=== PATIENT | male | born 1970 | race Caucasian/White ===

== ENCOUNTER 2019-04-03 19:52 | Inpatient (IN) ==
[2019-04-03] MEDS ORDERED: Isovue-370 500 ML BOTTLE IVP ONE (20:19)
[2019-04-03 20:42] LABS: Basophils # 0.1 K/mcL (0.0-0.2); Basophils % 0.6 %; Eosinophils # 0.5 K/mcL (0.0-0.6); Eosinophils % 3.7 %; Hematocrit 39.9 % (37.5-50.1); Hemoglobin 13.3 g/dL (12.9-16.9); Immature Granulocytes % 1.5 % (0-4); Lymphocytes # 2.1 K/mcL (0.6-4.6); Lymphocytes % 16.4 %; Mean Corpuscular HGB Conc 33.3 g/dL (31.6-35.5); Mean Corpuscular Hemoglobin 28.9 pg (28.0-33.3); Mean Corpuscular Volume 86.7 fL (83.0-100.0); Mean Platelet Volume 11.3 fL (9.4-12.4); Monocytes # 0.8 K/mcL (0.0-1.3); Monocytes % 6.2 %; Neutrophils # 9.1 K/mcL (1.6-8.9); Platelet Count 212 K/mcL (140-400); Red Cell Distribution Width 12.8 % (11.5-14.5); Segmented Neutrophils % 71.6 %
--- NOTE | 2019-04-03 20:52 | Emergency Department Note ---
Disposition Clinical Impression: Pulmonary embolism and infarction Chest pain Qualifiers: Chest pain type: unspecified Qualified Code(s): R07.9 - Chest pain, unspecified Disposition: Admitted As Inpatient Condition: Undetermined Referrals: NONE,PCP [Primary Care Provider] - Forms: ED Satisfaction Letter Time of Disposition: 22:43 Chest Pain HPI - General Chief Complaint: ED Chest Pain Stated Complaint: Chest Tightness Time Seen by Provider: 04/03/19 20:10 Source: patient, family Mode of arrival: ambulatory Limitations: no limitations Vital Signs Reviewed: Yes Nursing Notes Reviewed: Yes - History of Present Illness HPI Narrative: 48-year-old male with history of hypertension, recent knee surgery and recent diagnosis of pulmonary emboli and DVT arrives to the emergency department with severe chest pressure. Patient was diagnosed roughly 10 days ago and started on Xarelto. The patient is on the twice a day dosing at this time and is taking it appropriately. He denies any other complaints at this time including shortness of breath. He is describing severe chest pressure that started roughly 2 hours prior to arrival. Patient denies any other complaints at this time. He is resting comfortably in the room and in no acute distress. Patient is noted to be tachycardic on evaluation. Severity scale (1-10): 8 - Related Data Home Medications Medication Instructions Recorded Confirmed Ibuprofen [Motrin] 800 mg PO TID PRN 03/20/19 03/20/19 Amlodipine Besylate 10 mg PO DAILY 04/03/19 04/03/19 Metaxalone 800 mg PO TID PRN 04/03/19 04/03/19 Rivaroxaban [Xarelto] 15 mg PO BID 04/03/19 04/03/19 Allergies Allergy/AdvReac Type Severity Reaction Status Date / Time No Known Allergies Allergy Verified 03/19/19 22:41 All systems ED: reviewed and negative except as stated. Constitutional: Denies: fever, chills, weakness ENT ED: Denies: dysphagia Cardiovascular: Reports: chest pain. Denies: palpitations Respiratory: Denies: dyspnea Gastrointestinal: Denies: abdominal pain Genitourinary: Denies: urgency, dysuria Musculoskeletal: Denies: back pain Integumentary: Denies: rash Neurological: Denies: headache Chest Pain PMH - Past Medical History Medical history: Reports: DVT, hypertension, pulmonary embolus Surgical history: Reports: no surgical history Psychiatric history: Reports: no psych history - Social History Smoking Status: Never smoker Alcohol use: Reports: none Drug use: Reports: none Physical Exam - General Limitations: no limitations General appearance: alert, in no apparent distress - Head Head exam: atraumatic, normocephalic, normal inspection - Eye Eye exam: Present: normal appearance, PERRL, EOMI - ENT ENT exam: normal exam, normal oropharynx, mucous membranes moist - Neck Neck exam: Present: normal inspection, full ROM, trachea midline - Chest Chest inspection: Present: normal inspection, symmetric chest wall rise - Respiratory Respiratory exam: Present: normal lung sounds bilaterally - Cardiovascular Cardiovascular exam: Present: normal rhythm, tachycardia - Abdominal Exam Abdominal exam: Present: soft, Non-Tender. Absent: tenderness, distention, guarding, rebound, rigidity - Extremities Exam Extremities exam: Present: full ROM, normal capillary refill, other (post-op to right knee). Absent: tenderness Course Vital Signs Temperature 98.2 F 04/03/19 20:12 Pulse Rate 118 04/03/19 20:12 Respiratory Rate 20 04/03/19 20:12 Blood Pressure 158/79 04/03/19 20:12 O2 Sat by Pulse Oximetry 98 04/03/19 20:12 Temperature 98.2 F 04/03/19 20:12 Pulse Rate 96 04/03/19 21:10 Respiratory Rate 20 04/03/19 21:10 Blood Pressure 144/94 04/03/19 21:10 O2 Sat by Pulse Oximetry 96 04/03/19 21:10 Oxygen Delivery Oxygen Delivery Room Air Chest Pain - MDM Narrative Medical decision making narrative: Patient's CTA demonstrates bilateral pulmonary emboli. The patient does have areas of pulmonary infarction as well. He is currently on Xarelto and we are unable and nor is call was radiology able to see previous images performed and as soon see. Given the patient's infarction I am concerned about the patient and I believe the patient needs to be admitted to the hospital as he is now symptomatic with this infarction noted on CTA of the chest. The patient will be started on a heparin drip and admitted to the hospital. Patient made aware and agrees to plan. No further questions or concerns noted. Accepted by Dr. Dale - Lab Data Lab results reviewed: Yes I reviewed the patient's lab results. Result diagrams: 04/03/19 20:27 04/03/19 20:27 Lab Results 04/03/19 04/03/19 Range/Units 20:27 20:27 WBC 12.7 H (4.3-11.1) K/mcL RBC 4.60 (4.19-5.50) M/mcL Hgb 13.3 (12.9-16.9) g/dL Hct 39.9 (37.5-50.1) % MCV 86.7 (83.0-100.0) fL MCH 28.9 (28.0-33.3) pg MCHC 33.3 (31.6-35.5) g/dL RDW 12.8 (11.5-14.5) % Plt Count 212 (140-400) K/mcL MPV 11.3 (9.4-12.4) fL Immature Gran % 1.5 (0-4) % Seg Neutrophils % 71.6 % Lymphocytes % 16.4 % Monocytes % 6.2 % Eosinophils % 3.7 % Basophils % 0.6 % Neutrophils # 9.1 H (1.6-8.9) K/mcL Lymphocytes # 2.1 (0.6-4.6) K/mcL Monocytes # 0.8 (0.0-1.3) K/mcL Eosinophils # 0.5 (0.0-0.6) K/mcL Basophils # 0.1 (0.0-0.2) K/mcL Sodium 136 (136-145) mEq/L Potassium 3.6 (3.5-5.1) mEq/L Chloride 101 (98-107) mEq/L Carbon Dioxide 22 L (23-29) mEq/L BUN 20 (6-20) mg/dL Creatinine 0.89 (0.70-1.30) mg/dL Est GFR ( Amer) > 60 (> 60) Est GFR (Non-Af Amer) > 60 (> 60) BUN/Creatinine Ratio 22 (6-26) Glucose 157 H (70-105) mg/dL Calculated Osmolality 288 (280-300) Calcium 9.9 (8.6-10.3) mg/dL Troponin I < 0.03 (< 0.04) ng/mL - Radiology Data Radiology results reviewed: Yes I reviewed the patient's radiology results. Chest X-Ray 04/03/19 20:17 IMPRESSION: No acute airspace disease identified. D/ / Saurabh Stephens / Saurabh Stephens Interpreting Provider: Saurabh Stephens Chest CTA 04/03/19 20:19 IMPRESSION: 1. Acute pulmonary emboli involving the right middle lobe, right lower lobe, and left lower lobe. No CT evidence of right heart strain. Of note, per ordering provider, the patient was recently diagnosed with pulmonary emboli at an outside hospital, however, these images are not available for review at the time of dictation. 2. Focal peripheral opacity in the right lower lobe likely represents pulmonary infarction. 3. Small sliding-type hiatal hernia. Findings were discussed with Dr. Briscoe on 04/03/2019 at 9:50 p.m. D/ / 04/03/2019 21:55:58 Savana Brice MD / deep Interpreting Provider: Savana Brice MD - EKG Data EKG attestation: Yes I reviewed and interpreted this EKG. EKG results narrative: Heart rate 116 beats) normal sinus tachycardia. No ST elevation or ST depression noted. No acute changesof the tachycardia.
[2019-04-03 21:08] LABS: BUN/Creatinine Ratio 22 (6-26); Blood Urea Nitrogen 20 mg/dL (6-20); Calcium 9.9 mg/dL (8.6-10.3); Carbon Dioxide 22 mEq/L (23-29); Chloride 101 mEq/L (98-107); Glucose 157 mg/dL (70-105); Osmolality,Calculated 288 (280-300); Potassium 3.6 mEq/L (3.5-5.1); Sodium 136 mEq/L (136-145); eGFR For Non-African Americans > 60 (> 60)
[2019-04-03 21:09] LABS: Troponin I < 0.03 ng/mL (< 0.04)
[2019-04-03] MEDS ORDERED: *HR* Heparin 5,000 UNIT/ML VIAL IVP ONE (21:57)
[2019-04-03] MEDS ORDERED: *HR* Heparin 5,000 UNIT/ML VIAL IVP PRN ×2 (21:57)
[2019-04-03] MEDS ORDERED: *HR* OxyCODONE/APAP 5/325 TABLET PO ONE (22:05)
[2019-04-03] MEDS ORDERED: *HR* HYDROmorphone (PF) 1 MG/ML SYRINGE IVP ONE (22:41)
--- NOTE | 2019-04-03 22:46 | Emergency Department Note ---
Disposition Clinical Impression: Pulmonary embolism and infarction Chest pain Qualifiers: Chest pain type: unspecified Qualified Code(s): R07.9 - Chest pain, unspecified Disposition: Admitted As Inpatient Condition: Undetermined Referrals: NONE,PCP [Primary Care Provider] - Forms: ED Satisfaction Letter Time of Disposition: 22:46 General Adult HPI - General Chief complaint: ED Chest Pain Stated complaint: Chest Tightness Time Seen by Provider: 04/03/19 20:10 Source: patient, family Mode of arrival: ambulatory Limitations: no limitations - History of Present Illness Pain Scale: 8 - Related Data Home Medications Medication Instructions Recorded Confirmed Ibuprofen [Motrin] 800 mg PO TID PRN 03/20/19 03/20/19 Amlodipine Besylate 10 mg PO DAILY 04/03/19 04/03/19 Metaxalone 800 mg PO TID PRN 04/03/19 04/03/19 Rivaroxaban [Xarelto] 15 mg PO BID 04/03/19 04/03/19 Allergies Allergy/AdvReac Type Severity Reaction Status Date / Time No Known Allergies Allergy Verified 03/19/19 22:41 Constitutional: Denies: fever, chills, weakness ENT ED: Denies: dysphagia Cardiovascular: Reports: chest pain. Denies: palpitations Respiratory: Denies: dyspnea Gastrointestinal: Denies: abdominal pain Genitourinary: Denies: urgency, dysuria Musculoskeletal: Denies: back pain Integumentary: Denies: rash Neurological: Denies: headache Past Medical History - Past Medical History Medical history: Reports: DVT, hypertension, pulmonary embolus Surgical history: Reports: no surgical history Psychiatric history: Reports: no psych history - Social History Smoking Status: Never smoker Smokeless Tobacco Status: No Alcohol use: Reports: none Drug use: Reports: none Physical Exam - General Limitations: no limitations General appearance: alert, in no apparent distress Course Vital Signs Temperature 98.2 F 04/03/19 20:12 Pulse Rate 118 04/03/19 20:12 Respiratory Rate 04/03/19 20:12 Blood Pressure 158/79 04/03/19 20:12 O2 Sat by Pulse Oximetry 98 04/03/19 20:12 Temperature 98.2 F 04/03/19 20:12 Pulse Rate 96 04/03/19 21:10 Respiratory Rate 04/03/19 21:10 Blood Pressure 144/94 04/03/19 21:10 O2 Sat by Pulse Oximetry 96 04/03/19 21:10 Oxygen Delivery Oxygen Delivery Room Air Medical Decision Making - Lab Data Result diagrams: 04/03/19 20:27 04/03/19 20:27 Lab Results 04/03/19 04/03/19 Range/Units 20:27 20:27 WBC 12.7 H (4.3-11.1) K/mcL RBC 4.60 (4.19-5.50) M/mcL Hgb 13.3 (12.9-16.9) g/dL Hct 39.9 (37.5-50.1) % MCV 86.7 (83.0-100.0) fL MCH 28.9 (28.0-33.3) pg MCHC 33.3 (31.6-35.5) g/dL RDW 12.8 (11.5-14.5) % Plt Count 212 (140-400) K/mcL MPV 11.3 (9.4-12.4) fL Immature Gran % 1.5 (0-4) % Seg Neutrophils % 71.6 % Lymphocytes % 16.4 % Monocytes % 6.2 % Eosinophils % 3.7 % Basophils % 0.6 % Neutrophils # 9.1 H (1.6-8.9) K/mcL Lymphocytes # 2.1 (0.6-4.6) K/mcL Monocytes # 0.8 (0.0-1.3) K/mcL Eosinophils # 0.5 (0.0-0.6) K/mcL Basophils # 0.1 (0.0-0.2) K/mcL Sodium 136 (136-145) mEq/L Potassium 3.6 (3.5-5.1) mEq/L Chloride 101 (98-107) mEq/L Carbon Dioxide 22 L (23-29) mEq/L BUN 20 (6-20) mg/dL Creatinine 0.89 (0.70-1.30) mg/dL Est GFR ( Amer) > 60 (> 60) Est GFR (Non-Af Amer) > 60 (> 60) BUN/Creatinine Ratio 22 (6-26) Glucose 157 H (70-105) mg/dL Calculated Osmolality 288 (280-300) Calcium 9.9 (8.6-10.3) mg/dL Troponin I < 0.03 (< 0.04) ng/mL Attestation Statement - Attestation Attestation: I examined this patient and my medical decision-making was reviewed with the Resident Physician. I agree with the documented findings, disposition and treatment plan as described except to the extent set forth below. 48 year old male presnets to the ED with complaints of chest pain and has been recently goign through a series of unfortunate events including a knee replacment resulting in a septic joint and then developed DVTs and had a [place] filter placed seocndary to one pulmonry embolism in the r lung and then was admitted and placed into the hospital for heparin therapy and then discharge home with xarelto on friday. he than developed increased pain he returned and CTA shows a pulmonary infaraction in addition to two new PEs. WE have placed him back on heparin [facility]
[2019-04-03 23:01] LABS: Hematocrit 37.5 % (37.5-50.1); Hemoglobin 12.1 g/dL (12.9-16.9); Mean Corpuscular HGB Conc 32.3 g/dL (31.6-35.5); Mean Corpuscular Hemoglobin 28.3 pg (28.0-33.3); Mean Corpuscular Volume 87.6 fL (83.0-100.0); Platelet Count 204 K/mcL (140-400); Red Blood Count 4.28 M/mcL (4.19-5.50); Red Cell Distribution Width 12.9 % (11.5-14.5)
[2019-04-03 23:09] LABS: Heparin anti-factor XA UFH 0.51 IU/mL (0.30-0.70); INR 1.3; Prothrombin Time 14.2 Seconds (9.4-12.1)
[2019-04-03 23:12] LABS: Activated Partial Thrombo Time 33.8 Seconds (26.0-36.0)
[2019-04-03] MEDS: Heparin 25,000 UNIT/250 ML D5W 25,000 UNIT/250 ML IV.SOLN IVC SCH (23:12)
[2019-04-03] MEDS ORDERED: Acetaminophen 325 MG TABLET PO PRN (23:14)
[2019-04-03] MEDS ORDERED: Naloxone 0.4 MG/ML INJ IVP PRN (23:14)
--- NOTE | 2019-04-03 23:34 | Internal Med History&Physical ---
Date of Encounter: 04/03/19 Time of Encounter: 23:33 Internal Medicine - H&P: HPI Chief complaint: chest pain Admitted From: Home Plans for Post Hospital Care: Home History of present illness: Gigi Skinner is a 48 year old man who underwent total right knee replacement 1 month ago at [facility] later on developed complications that were initially concerning for an infection receiving a short course of antibiotics after presenting here less than 2 weeks ago with right knee pain and swelling. He also complained of pleuritic chest pain however he was transferred back to [facility] for his treating surgeon to evaluate. There he was diagnosed with right lower leg DVT as well as pulmonary embolism with [place] filter was placed. He was discharged on rivaroxaban. He comes here now complaining of chest tightness that started earlier today and progress it gave him concern. He was tachycardic on arrival. CTA was done and showed acute PE involving the right middle, right lower and left lower lobes as well as a focal peripheral opacity in the right lower lobe likely representing pulmonary infarction. These findings are reported to the patient who states that there seems to have been a progression as he was told he had only 1 lesion in his right lung. He was started on heparin drip due to the new onset chest discomfort and seemingly progressive pulmonary embolic burden. He is admitted for further evaluation. Vitals: Reviewed General: Well developed white male lying comfortably in bed in no acute distress. Skin: Warm and dry. HEENT: Moist mucous membranes. No conjunctivae pallor. Neck: No lymphadenopathy. No JVD. No carotid bruits. No palpable thyroid. Chest: Normal thoracic expansion. Normal breath sounds. Clear to auscultation. Heart: Normal S1 & S2; rhythmic. No rubs or murmurs. Abdomen: Non-distended, soft and non-tender to palpation. No peritoneal reaction. Extremities: No clubbing, cyanosis or edema. No calf tenderness. Normal distal pulses. Neurological: Awake, alert and oriented to person, place and time. No focal deficits. Psych: Affect appropriate. Assessment/Plan 1. Venous thromboembolic disease: The patients reports that his duplex at the time showed what seem to have been a large clot that was loose and potentially mobile which prompted the filter placement. It is possible this may have dislodged to the lungs although the probability of this happening should be low given the concurrent anticoagulation with the filter presence. Will get another duplex for evaluation and the findings should be compared. Given his clinical complaints, placing him on heparin for now is suitable until we ensure stability. Will get an echo to evaluate for RV strain and pHTN. He should be seen by hematology for outpatient follow up if not already scheduled. 2. Right knee replacement: Has completed physical therapy. Unclear if there was a confirmed postoperative infection as his says the aspirate cultures never grew and he received a few days of parenteral antibiotics while admitted but nothing on discharge. 3. Hypertension: Will resume amlodipine. Past Med Surg Social Fam HX - Past Medical History Medical history: DVT, hypertension, pulmonary embolus Psychiatric history: no psych history - Past Surgical History Surgical History: no surgical history Additional surgical history: R knee replacement, hernia with mesh - Social History Smoking Status: Never smoker Smokeless Tobacco Status: No Alcohol use: none Drug use: none Internal Medicine - H&P: Meds Amlodipine Besylate 10 mg PO DAILY 04/03/19 [History] Metaxalone 800 mg PO TID PRN 04/03/19 [History] OxyCODONE/APAP 5/325 [Percocet 5/325 MG] 1 each PO Q6HR PRN 04/03/19 [History] Rivaroxaban [Xarelto] 15 mg PO BID 04/03/19 [History] Allergy/AdvReac Type Severity Reaction Status Date / Time No Known Allergies Allergy Verified 03/19/19 22:41 All Systems PM: A 10-system review of systems was performed and is negative for pertinent findings except as documented above in the HPI. Family history reviewed and found non-contributory. - Constitutional Vitals: Temp Pulse Resp BP Pulse Ox 98.2 F 96 20 144/94 96 04/03/19 20:12 04/03/19 21:10 04/03/19 21:10 04/03/19 21:10 04/03/19 21:10 Exam: . Internal Med - H&P Results - Labs CBC & Chem 7: 04/03/19 22:52 04/03/19 20:27 Labs: Short CBC 04/03/19 04/03/19 Range/Units 20:27 22:52 WBC 12.7 H 13.3 H (4.3-11.1) K/mcL Hgb 13.3 12.1 L (12.9-16.9) g/dL Hct 39.9 37.5 (37.5-50.1) % Plt Count 212 204 (140-400) K/mcL Neutrophils # 9.1 H (1.6-8.9) K/mcL BMP 04/03/19 20:27 Sodium 136 Potassium 3.6 Chloride 101 Carbon Dioxide 22 L BUN 20 Creatinine 0.89 Glucose 157 H Calcium 9.9 Cardiac Enzymes 04/03/19 Range/Units 20:27 Troponin I < 0.03 (< 0.04) ng/mL - Impressions ITS Impressions Chest X-Ray 04/03/19 20:17 IMPRESSION: No acute airspace disease identified. D/ / Saurabh Stephens / Saurabh Stephens Interpreting Provider: Saurabh Stephens Chest CTA 04/03/19 20:19 IMPRESSION: 1. Acute pulmonary emboli involving the right middle lobe, right lower lobe, and left lower lobe. No CT evidence of right heart strain. Of note, per ordering provider, the patient was recently diagnosed with pulmonary emboli at an outside hospital, however, these images are not available for review at the time of dictation. 2. Focal peripheral opacity in the right lower lobe likely represents pulmonary infarction. 3. Small sliding-type hiatal hernia. Findings were discussed with Dr. Briscoe on 04/03/2019 at 9:50 p.m. D/ / 04/03/2019 21:55:58 Savana Brice MD / deep Interpreting Provider: Savana Brice MD - Time Spent With Patient Total time spent is greater than 50% in coordination of care (as documented) at patient's floor/unit and/or counseling patient: Greater than 35 minutes
[2019-04-04] MEDS: *HR* OxyCODONE Immed Rel 5 MG TABLET PO PRN ×4 (02:07→23:41)
[2019-04-04] MEDS: amLODIPine 5 MG TABLET PO SCH (08:27)
--- NOTE | 2019-04-04 09:33 | Internal Med Progress Note ---
Hospitalist Progress Note - Encounter Date of Encounter: 04/04/19 Time of Encounter: 09:30 - Subjective Interval History: Patient seen and examined this morning at bedside. Afebrile and hemodynamically stable. Saturating well on room air. Complains of chest tightness on deep breathing slightly on the left as well as on right. Denies fevers chills nausea vomiting or diarrhea. - Exam Vitals: Temp Pulse Resp BP Pulse Ox 98.1 F 86 16 141/97 94 04/04/19 05:03 04/04/19 05:03 04/04/19 05:03 04/04/19 05:03 04/04/19 05:03 Exam: Exam General: In no acute distress. Respiratory exam: CTAB. no accessory muscle use, rales, rhonchi, wheezes Cardiovascular exam: RRR, +S1, +S2. no murmur, gallop, rubs. GI/Abdominal exam: Non-tender, Non-distended, normal bowel sounds, soft, no peritoneal signs. Extremities exam: no pedal edema, no calf tenderness. Rt leg larger in size than lt. Knee with surgical scars. No signs of infection. calf tenderness on Rt. Neurological exam: CN II-XII intact, AO X3, no focal deficits. Skin exam: No skin rash - Summary of Assessment and Plan Summary of Assessment and Plan: Assessment Acute Chest tightness Rt Leg DVT PE Chronic HTN Recent rt knee replacement PE DVT Plan - Saturating well on room air. Hemodynamically stable. c/w heparin for now. Had IVC filter placed. Will obtain records form [facility] to compare CT result whether there is new PE. Will consider hematology consult if there is new PE with IVC filter and while on xarelto. - f/u repeat LE US. - c/w amlodipine, prn percoce medications - Time Spent with Patient Total time spent is greater than 50% in coordination of care (as documented) at patient's floor/unit and/or counseling patient: Internal Medicine: Result - Labs CBC & Chem 7: 04/03/19 22:52 04/03/19 20:27 Labs: Short CBC 04/03/19 04/03/19 Range/Units 20:27 22:52 WBC 12.7 H 13.3 H (4.3-11.1) K/mcL Hgb 13.3 12.1 L (12.9-16.9) g/dL Hct 39.9 37.5 (37.5-50.1) % Plt Count 212 204 (140-400) K/mcL Neutrophils # 9.1 H (1.6-8.9) K/mcL BMP 04/03/19 20:27 Sodium 136 Potassium 3.6 Chloride 101 Carbon Dioxide 22 L BUN 20 Creatinine 0.89 Glucose 157 H Calcium 9.9 Cardiac Enzymes 04/03/19 Range/Units 20:27 Troponin I < 0.03 (< 0.04) ng/mL - ABG Interpretation ABG results: PT/INR, D-dimer PT 14.2 Seconds (9.4-12.1) H 04/03/19 22:52 - Impressions Impressions Chest X-Ray 04/03/19 20:17 IMPRESSION: No acute airspace disease identified. D/ / Saurabh Stephens / Saurabh Stephens Interpreting Provider: Saurabh Stephens Chest CTA 04/03/19 20:19 IMPRESSION: 1. Acute pulmonary emboli involving the right middle lobe, right lower lobe, and left lower lobe. No CT evidence of right heart strain. Of note, per ordering provider, the patient was recently diagnosed with pulmonary emboli at an outside hospital, however, these images are not available for review at the time of dictation. 2. Focal peripheral opacity in the right lower lobe likely represents pulmonary infarction. 3. Small sliding-type hiatal hernia. Findings were discussed with Dr. Briscoe on 04/03/2019 at 9:50 p.m. D/ / 04/03/2019 21:55:58 Savana Brice MD / bcarter Interpreting Provider: Savana Brice MD Consult Discharge Plan - Plan Referrals: NONE,PCP [Primary Care Provider] -
[2019-04-04] MEDS ORDERED: Perflutren Lipid Microsphere 1.3 ML in 0.9 % Sodium Chloride 8.7 ML IVP ONE (11:08)
[2019-04-04] MEDS: *HR* OxyCODONE/APAP 5/325 TABLET PO PRN ×2 (11:45→19:50)
[2019-04-04] MEDS: Heparin 25,000 UNIT/250 ML D5W 25,000 UNIT/250 ML IV.SOLN IVC SCH (15:40)
[2019-04-04] MEDS ORDERED: *HR* LORazepam 0.5 MG TABLET PO ONE (20:35)
[2019-04-05] MEDS: *HR* OxyCODONE/APAP 5/325 TABLET PO PRN ×3 (02:31→20:56)
[2019-04-05] MEDS: *HR* OxyCODONE Immed Rel 5 MG TABLET PO PRN ×2 (05:44→14:44)
[2019-04-05] MEDS: amLODIPine 5 MG TABLET PO SCH (08:46)
--- NOTE | 2019-04-05 11:32 | Oncology Inp Consult Note ---
Date of Encounter: 04/05/19 Time of Encounter: 08:00 Assessment and Plan (1) Pulmonary embolism and infarction Status: Acute Assessment and plan: Hx bilateral DVT, PE, with new onset pleuritic chest pain and SOB CTA showing multiple PE, rt and left lung, possibly new. He reports compliance with xarelto. 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 s/p IVC filter placement with eduarda DVT. Continue heparin and for outpatient consider alternative anticoagulation with eliquis 10 mg BID, followed by 5mg BID dosing, at least 6 months (precipitated recurrent PE) and longer as clinically indicated. Follow up outpatient for outpatient monitoring of labs. Plan d.w patient this AM - Data of Consult Requesting Physician: Stephanie Martinez MD Primary Care Provider: PCP NONE - Consult Narrative Reason for consult: DVT/PE History of present illness: 48 -year-old male with medical history significant for diabetes, hypertension, status post right knee total replacement also associated with complications, septic arthritis, was discharged a week ago when he also developed venous thromboembolic disease bilateral lower extremities as well as right lung PE. He is hospitalized with acute left-sided pleuritic chest pain and a CTA done showed acute pulmonary emboli involving the right middle lobe, right lower lobe, and left lower lobe focal peripheral opacity in the right lower lobe likely representing pulmonary infarction. Patient previously received IV heparin, outpatient Xarelto 15 mg twice daily which she had not missed, status post IVC filter placement and discharged from the hospital [facility], a week ago. He denies smoking history. He has lower ext pain. Chest pain and SOB improved with oxygen and IV heparin. Past Med Surg Social Fam HX - Past Medical History Medical history: DVT, hypertension, pulmonary embolus Psychiatric history: no psych history - Past Surgical History Surgical History: no surgical history Additional surgical history: R knee replacement, hernia with mesh - Social History Smoking Status: Never smoker Smokeless Tobacco Status: No Alcohol use: none Drug use: none - Family History Mother Living Status: Age at : 63 Cause of : LIP CANCER Hx Family Cardiac Disorders: Yes (AFIB,CABG X4) Hx Family Cancer: Yes Hx Family Endocrine Disorder: Yes (CKD, KIDNEY TRANSPLANT) Father Living Status: Age at : 66 Cause of : MVA Hx Family Endocrine Disorder: Yes (DM) Hx Family HEENT Disorders: Yes (SLEEP APNEA) Medications and Allergies Amlodipine Besylate 10 mg PO DAILY 04/03/19 [History] Metaxalone 800 mg PO TID PRN 04/03/19 [History] OxyCODONE/APAP 5/325 [Percocet 5/325 MG] 1 each PO Q6HR PRN 04/03/19 [History] Rivaroxaban [Xarelto] 15 mg PO BID 04/03/19 [History] Allergy/AdvReac Type Severity Reaction Status Date / Time No Known Allergies Allergy Verified 03/19/19 22:41 Additional comments: no fever, anorexia, chills Additional comments: Left chest pain, SOB Additional comments: SOB, denies cough Additional comments: Denies doug, hematochezia Additional comments: denies incontoinence, hematuria Additional comments: lower ext aches, swelling Additional comments: denies neuro symptoms Oncology - Exam - Constitutional General appearance: no acute distress Exam: 2 NC - Head Head exam: Present: atraumatic, normal inspection - Eye Eye exam: Present: sclera anicteric - ENT ENT exam: Present: mucous membranes moist - Neck Neck exam: Present: full ROM - Respiratory Respiratory exam: Present: CTAB Additional comments: Eduarda ae - Cardiovascular Cardiovascular exam: Present: +S1, +S2 - GI/Abdominal GI/Abdominal exam: Present: normal bowel sounds, soft - Extremities Exam Additional comments: Trace edema, s/p knee surgery - Neurological Exam Neurological exam: Present: alert, CN II-XII intact, oriented X3, no focal deficits - Psychiatric Psychiatric exam: Present: normal affect - Skin Skin exam: Present: normal color Consult Discharge Plan - Plan Referrals: NONE,PCP [Primary Care Provider] - Inpatient Charges Provider: Dr. Mony Grimes Consult - Inpatient: [id number]
--- NOTE | 2019-04-05 13:05 | Internal Med Progress Note ---
Hospitalist Progress Note - Encounter Date of Encounter: 04/05/19 Time of Encounter: 09:01 - Subjective Interval History: Patient seen and examined this morning in the center. No acute overnight events. Patient states that sugar of breath and pain with deep breathing. Denies any fever or chills nausea vomiting diarrhea. Feeling slightly better than yesterday. Denies any other complaint except right knee pain which has been ongoing before. - Exam Vitals: Temp Pulse Resp BP Pulse Ox 98.4 F 79 18 133/88 98 04/05/19 07:02 04/05/19 07:02 04/05/19 07:02 04/05/19 07:02 04/05/19 07:02 Exam: General: In no acute distress. Respiratory exam: CTAB. no accessory muscle use, rales, rhonchi, wheezes Cardiovascular exam: RRR, +S1, +S2. no murmur, gallop, rubs. GI/Abdominal exam: Non-tender, Non-distended, normal bowel sounds, soft, no peritoneal signs. Extremities exam: no pedal edema, no calf tenderness. Rt leg larger in size t sen lt. Knee with surgical scars. No signs of infection. calf tenderness on Rt. Neurological exam: CN II-XII intact, AO X3, no focal deficits. Skin exam: No skin rash - Summary of Assessment and Plan Summary of Assessment and Plan: Assessment Acute Chest tightness Bilateral DVT PE Chronic HTN Recent rt knee replacement PE DVT Plan - Saturating well on 2-2.5 L at rest. Hemodynamically stable. c/w heparin for now. Had IVC filter placed. awaiting records form [facility] to compare CT result whether there is new PE. LE dopplers with b/l DVT and SVT on prelim. f/u final result. CT with possible new PE. Consulted hematology for AC recommendations. - patient may need oxygen on discharge. - c/w amlodipine, prn percocet - Time Spent with Patient Total time spent is greater than 50% in coordination of care (as documented) at patient's floor/unit and/or counseling patient: Internal Medicine: Result - Labs CBC & Chem 7: 04/03/19 22:52 04/03/19 20:27 - ABG Interpretation ABG results: PT/INR, D-dimer PT 14.2 Seconds (9.4-12.1) H 04/03/19 22:52 - Impressions Impressions Echocardiogram 04/03/19 23:17 Impressions: LVEF 65-70%. Indeterminate diastolic function. Mildly dilated right ventricle with normal function. No significant valvular dysfunction. No evidence of pulmonary hypertension. Left Ventricular Wall Motion: Rest Echo Findings All wall segments showed normal motion. Findings: Study Quality * Technically sub-optimal due to poor echocardiographic windows, no TDI. ECG Findings * Normal sinus rhythm. Left Ventricle * LVEF 65-70%. * Normal LV chamber size, wall thickness and systolic function. * Indeterminate diastolic function. * Definity echo contrast was used. Right Ventricle * Mildly dilated right ventricle with normal function. Left Atrium * Normal left atrial size. Right Atrium * Normal right atrial size. Interatrial Septum * Interatrial septum not well evaluated. * No evidence of PFO by color Doppler. Aortic Valve * Aortic valve not well visualized. * No aortic stenosis. * No aortic regurgitation. Mitral Valve * Normal mitral valve structure. * No mitral stenosis. * Trace mitral regurgitation. Tricuspid Valve * Normal tricuspid valve structure. * No tricuspid stenosis. * Trace tricuspid regurgitation. * Unable to estimate RVSP due to lack of TR jet. * No evidence of pulmonary hypertension. * Estimated RA pressure is 3 mmHg. Pulmonic Valve * Pulmonic valve is not well visualized. * No pulmonic stenosis. * No pulmonic regurgitation. Aorta * Normally sized aortic root. Pericardium * The pericardium appears normal. IVC * The IVC is not dilated. * > 50% respiratory change Consult Discharge Plan - Plan Referrals: NONE,PCP [Primary Care Provider] -
--- NOTE | 2019-04-05 13:37 | Electrocardiograph Report ---
[place] [id number] Test Date: 2019-04-03 Pat Name: Gigi Skinner Department: 104 Room: [facility] Gender: M Pearl Cutter: Kojo : 1970 Requested By: Mark Briscoe Order Number: [id number] Reading MD: Junior Shah Measurements Intervals [place] Rate: 116 P: 29 [place]: 128 QRS: 51 QRSD: 100 T: 51 QT: 312 QTc: 381 Interpretive Statements SINUS TACHYCARDIA Electronically Signed On 04-05-2019 13:35:40 EDT by Junior Shah
[2019-04-05] MEDS: Heparin 25,000 UNIT/250 ML D5W 25,000 UNIT/250 ML IV.SOLN IVC SCH (18:15)
[2019-04-05] MEDS ORDERED: *HR* LORazepam 0.5 MG TABLET PO ONE (21:29)
[2019-04-06] MEDS: *HR* OxyCODONE Immed Rel 5 MG TABLET PO PRN ×3 (00:02→13:38)
[2019-04-06] MEDS: Heparin 25,000 UNIT/250 ML D5W 25,000 UNIT/250 ML IV.SOLN IVC SCH (05:08)
[2019-04-06] MEDS: *HR* OxyCODONE/APAP 5/325 TABLET PO PRN (10:40)
[2019-04-06] MEDS: amLODIPine 5 MG TABLET PO SCH (10:40)
[2019-04-06] MEDS ORDERED: Apixaban 5 MG TABLET PO ONE ×2 (13:37→15:00)
[2019-04-06 15:19] VITALS: BP 125/88
[2019-04-06] MEDS ORDERED: *HR* LORazepam 0.5 MG TABLET PO ONE (15:51)
--- NOTE | 2019-04-06 15:52 | Discharge Summary ---
- NOTES TO OUTPATIENT PROVIDER Notes to Outpatient Provider: Will need follow-up with hematology. Date of Encounter: 04/06/19 Time of Encounter: 15:48 - Discharge Diagnosis (1) Chest pain Priority: Primary Status: Acute Qualifiers: Chest pain type: pleurodynia Qualified Code(s): R07.81 - Pleurodynia (2) Pulmonary embolism and infarction Priority: Primary Status: Acute (3) DVT prophylaxis Priority: Secondary Status: Acute (4) Hypertension Priority: Secondary Status: Acute Qualifiers: Hypertension type: essential hypertension Qualified Code(s): I10 - Essential (primary) hypertension (5) DVT, bilateral lower limbs Priority: Primary Status: Acute Qualifiers: Affected thrombotic vein of extremity: popliteal Chronicity: acute Qual ified Code(s): I82.433 - Acute embolism and thrombosis of popliteal vein, bilateral Hospital course: Mr. Skinner is a 48 year old male with past medical history of hypertension who recently had right total knee replacement each was complicated after with right lower extremity DVT and PE which was treated at [facility] and he was discharged on xarelto and also had IVC filter placed came in with complain of chest pain was found to have new PE including right and left. Patient also forced found to have new DVT on left leg. Patient was started on heparin drip. Records were obtained for [facility] and patient did have new PE and DVT compared to before. Patient was transitioned to Eliquis with hematology recommendation. Patient did have significant anxiety regarding his oxygen levels when he goes home. Had 6 minute walk test where patient did well with saturation remaining above 94. Patient will be discharged with 7 days of 10 mg twice a day Eliquis and then 5 mg twice a day for 6 months at least. Patient has to follow-up with hematology and PCP as outpatient. Discussed not to involve him to strenuous exercise however getting physical therapy should be okay. Discharge discussed with: patient, family, nurse, social work - Time Spent with Patient Total time spent providing and/or coordinating discharge services: Time spent: Greater than 30 minutes (40) - Discharge Medications Prescriptions: New LORazepam [Ativan] 0.5 mg PO BID PRN 3 Days #6 tablet PRN Reason: Anxiety Apixaban [Eliquis] 10 mg PO BID 7 Days #14 tablet Apixaban [Eliquis] 5 mg PO BID 30 Days #60 tab.ds.pk Continued Metaxalone 800 mg PO TID PRN PRN Reason: Muscle Spasm Amlodipine Besylate 10 mg PO DAILY Changed OxyCODONE/APAP 5/325 [Percocet 5/325 MG] 1 each PO Q8HR PRN 3 Days #9 tablet PRN Reason: Pain Discontinued Rivaroxaban [Xarelto] 15 mg PO BID Home Medications: Amlodipine Besylate 10 mg PO DAILY 04/03/19 [History] Metaxalone 800 mg PO TID PRN 04/03/19 [History] Apixaban [Eliquis] 5 mg PO BID 30 Days #60 tab.ds.pk 04/06/19 [Rx] Apixaban [Eliquis] 10 mg PO BID 7 Days #14 tablet 04/06/19 [Rx] LORazepam [Ativan] 0.5 mg PO BID PRN 3 Days #6 tablet 04/06/19 [Rx] OxyCODONE/APAP 5/325 [Percocet 5/325 MG] 1 each PO Q8HR PRN 3 Days #9 tablet 04/06/19 [Rx] Allergies/Adverse Reactions: 3 Allergy/AdvReac Type Severity Reaction Status Date / Time No Known Allergies Allergy Verified 03/19/19 22:41 Date of admission: 04/03/19 23:41 Primary care physician: PCP NONE Consults: 04/04/19 01:44 Consult to Nutrition [CONS] Routine Comment: Consulting Provider: NUTRITION Reason for Dietary Consult: MST Score 04/05/19 06:27 Consult to Oncology Hematology [CONS] Routine Consulting Provider: Oncology [facility] Reason for Consult: anticoagulation recommendation Call Completed: No Discharging clinician: Stephanie Osorio Martinez - Constitutional Vitals: Temp Pulse Resp BP Pulse Ox 96.4 F L 86 18 125/88 96 04/06/19 15:17 04/06/19 15:17 04/06/19 08:00 04/06/19 15:17 04/06/19 15:17 Exam: General: In no acute distress. Respiratory exam: CTAB. no accessory muscle use, rales, rhonchi, wheezes Cardiovascular exam: RRR, +S1, +S2. no murmur, gallop, rubs. GI/Abdominal exam: Non-tender, Non-distended, normal bowel sounds, soft, no peritoneal signs. Extremities exam: no pedal edema, no calf tenderness. Rt Knee with surgical scars. mild tenderness on range of motion. Neurological exam: CN II-XII intact, AO X3, no focal deficits. Skin exam: No skin rash - Patient Status Disposition: Home, Self-Care Condition: Undetermined - Discharge Instructions Follow Up With: NONE,PCP [Primary Care Provider] - - Diet and Activity Activity: as per physical therapy, increase activity as tolerated
== END 2019-04-06 17:32 | disposition home or self-care (01) | DRG 134 ==
LOC: 2NENU 19:52 → EMEROOARM 19:52 → SUATTDRO 23:41 → 2NENU 04-04 00:07
PROVIDERS: ADMIT Internal Medicine; ATTEND Internal Medicine

== ENCOUNTER 2019-07-27 12:05 | Observation (INO) ==
[2019-07-27] MEDS ORDERED: Isovue-370 500 ML BOTTLE IVP ONE (12:35)
[2019-07-27] MEDS ORDERED: Morphine Sulfate 2 MG/ML SYRINGE IVP ONE ×3 (12:39→23:33)
--- NOTE | 2019-07-27 12:45 | Emergency Department Note ---
Disposition Clinical Impression: Chest pain Qualifiers: Chest pain type: unspecified Qualified Code(s): R07.9 - Chest pain, unspecified DVT (deep venous thrombosis) Qualifiers: DVT location: lower extremity Affected thrombotic vein of extremity: tibial Chronicity: acute Laterality: right Qualified Code(s): I82.441 - Acute embolism and thrombosis of right tibial vein Disposition: Admitted As Inpatient Condition: Good Referrals: Eli Kraft FURNACE WORKER [Primary Care Provider] - Forms: ED Satisfaction Letter Time of Disposition: 15:27 Chest Pain HPI - General Chief Complaint: ED Chest Pain Stated Complaint: chest tightness/leg pain hx pe Time Seen by Provider: 07/27/19 12:15 Source: patient Mode of arrival: private vehicle Limitations: no limitations Vital Signs Reviewed: Yes Nursing Notes Reviewed: Yes - History of Present Illness HPI Narrative: This is a 48-year-old male with a past medical history of DVTs, pulmonary emboli currently on Eliquis who presents with a chief complaint of chest pain and leg pain. Patient states the chest pain began yesterday but then worsened overnight. Feels like something is sitting on his chest. He is also had pain in his right leg as well as swelling into his calf and pain over the patella. Denies any trauma. He states his IVC filter was removed 2 weeks ago at [facility]. He has been compliant with his Eliquis. He has no history of CAD. No other complaints. Pt complaint: chest pain Onset (ago): day(s) Duration: intermittent Severity scale (1-10): 10 Pain Radiation: none Improves with: nothing Worsens with: nothing Associated symptoms: Reports: dyspnea, leg swelling. Denies: nausea, vomiting, diaphoresis Treatments prior to arrival chest pain: none - Related Data Home Medications Medication Instructions Recorded Confirmed Amlodipine Besylate 10 mg PO DAILY 04/03/19 04/08/19 Metaxalone 800 mg PO TID PRN 04/03/19 04/08/19 Previous Rx's Medication Instructions Recorded Dicyclomine [Bentyl] 10 mg PO QID #10 capsule 04/08/19 Albuterol Sulfate [Albuterol 1 puff IH Q4HR PRN #1 hfa.aer.ad 04/25/19 Inhaler] Allergies Allergy/AdvReac Type Severity Reaction Status Date / Time No Known Allergies Allergy Verified 07/27/19 12:10 All systems ED: reviewed and negative except as stated. Constitutional: Denies: fever Cardiovascular: Reports: chest pain Respiratory: Reports: dyspnea. Denies: cough Gastrointestinal: Denies: abdominal pain, nausea, vomiting, diarrhea Musculoskeletal: Reports: other (Leg pain) Neurological: Denies: weakness, numbness Chest Pain PMH - Past Medical History Medical history: Reports: DVT, hypertension, pulmonary embolus Surgical history: Reports: no surgical history Psychiatric history: Reports: no psych history - Social History Smoking Status: Former smoker Alcohol use: Reports: none Drug use: Reports: none Physical Exam - General Limitations: no limitations General appearance: alert, in no apparent distress - Head Head exam: atraumatic, normocephalic, normal inspection - Eye Eye exam: Present: normal appearance - ENT ENT exam: normal exam - Neck Neck exam: Present: normal inspection - Chest Chest inspection: Present: normal inspection, symmetric chest wall rise - Respiratory Respiratory exam: Present: normal lung sounds bilaterally - Cardiovascular Cardiovascular exam: Present: regular rate, normal rhythm, irregular rhythm - Abdominal Exam Abdominal exam: Present: soft, Non-Tender. Absent: tenderness, distention, guarding, rigidity - Extremities Exam Extremities exam: Present: normal inspection, full ROM - Expanded Upper Extremity Exam Shoulder exam: Present: normal inspection, full ROM Arm exam: Present: normal inspection, full ROM Elbow exam: Present: normal inspection, full ROM Forearm/Wrist exam: Present: normal inspection, full ROM Hand exam: Present: normal inspection, full ROM Vascular exam: Normal: radial pulse - Expanded Lower Extremity Exam Hip/Pelvis exam: Present: normal inspection, full ROM Upper leg exam: Present: normal inspection, full ROM Knee exam: Present: normal inspection, full ROM Lower leg exam: Present: normal inspection, full ROM, other (Tenderness to the right posterior calf he has a small area of edema to the anterior lateral portion of the right knee with exquisite tenderness. No overlying soft tissue changes.) Ankle exam: Present: normal inspection, full ROM Foot/toe exam: Present: normal inspection, full ROM Neurovascular/Tendon exam: Absent: pulse deficit, motor deficit, sensory deficit - Skin Skin exam: Present: warm, dry, intact Course Course Narrative: Seen and examined. Vital signs reviewed. Plan to obtain an additional CTA given recent IVC filter removal due to concern for increased clot burden, DVT study of both legs, EKG, labs including troponin to evaluate for strain. Patient will be given morphine for pain. Disposition pending. - Reevaluation(s) Reevaluation #1: Imaging labs reviewed. He does have a new DVT at the tibial peroneal trunk per restaurant crew read. CTA negative for pulmonary embolism. Given these findings plan to discuss with hematology. Reevaluation #2: Patient agreeable with admission. - Consultations Consultation #1: I spoke with the on-call mailroom associate. Discussed the patient's history as well as exam and current findings of a new acute DVT. He also currently does not have an IVC filter. At this point I am concerned that he continues to have DVT episodes despite oral anticoagulation. They agree with the plan of heparinizing the patient and will likely bridge him to Coumadin. They will see him in consultation. Vital Signs Temperature 97.5 F L 07/27/19 12:08 Pulse Rate 81 07/27/19 12:08 Respiratory Rate 16 07/27/19 12:08 Blood Pressure 129/87 07/27/19 12:08 O2 Sat by Pulse Oximetry 97 07/27/19 12:08 Temperature 97.5 F L 07/27/19 12:41 Pulse Rate 77 07/27/19 12:50 Respiratory Rate 16 07/27/19 12:50 Blood Pressure 129/85 07/27/19 12:50 O2 Sat by Pulse Oximetry 98 07/27/19 12:50 Oxygen Delivery Oxygen Delivery Room Air Chest Pain - MDM Narrative Medical decision making narrative: 48-year-old male presenting with right leg pain and chest pain. Prior history of thromboembolism. EKG is sinus without ischemic findings. CTA without evidence of pulmonary embolism. Troponin is negative. He does have what appears to be in no acute DVT. For these findings the patient is placed on heparin, hematology was consulted who will see the patient in consultation. The patient is admitted to the hospitalist service. - Lab Data Lab results reviewed: Yes I reviewed the patient's lab results. Result diagrams: 07/27/19 12:33 07/27/19 12:33 Lab Results 07/27/19 07/27/19 07/27/19 Range/Units 12:33 12:33 12:33 WBC 7.6 (4.3-11.1) K/mcL RBC 4.81 (4.19-5.50) M/mcL Hgb 13.9 (12.9-16.9) g/dL Hct 41.5 (37.5-50.1) % MCV 86.3 (83.0-100.0) fL MCH 28.9 (28.0-33.3) pg MCHC 33.5 (31.6-35.5) g/dL RDW 12.8 (11.5-14.5) % Plt Count 177 (140-400) K/mcL MPV 11.7 (9.4-12.4) fL Immature Gran % 0.5 (0-4) % Seg Neutrophils % 67.6 % Lymphocytes % 20.4 % Monocytes % 8.0 % Eosinophils % 3.0 % Basophils % 0.5 % Neutrophils # 5.2 (1.6-8.9) K/mcL Lymphocytes # 1.6 (0.6-4.6) K/mcL Monocytes # 0.6 (0.0-1.3) K/mcL Eosinophils # 0.2 (0.0-0.6) K/mcL Basophils # 0.0 (0.0-0.2) K/mcL PT 14.2 H (9.4-12.1) Seconds INR 1.3 APTT 32.3 (26.0-36.0) Seconds Sodium 139 (136-145) mEq/L Potassium 3.8 (3.5-5.1) mEq/L Chloride 107 (98-107) mEq/L Carbon Dioxide 27 (23-29) mEq/L BUN 17 (6-20) mg/dL Creatinine 1.14 (0.70-1.30) mg/dL Est GFR ( Amer) > 60 (> 60) Est GFR (Non-Af Amer) > 60 (> 60) BUN/Creatinine Ratio 15 (6-26) Glucose 115 H (70-105) mg/dL Calculated Osmolality 290 (280-300) Calcium 9.2 (8.6-10.3) mg/dL Troponin I < 0.03 (< 0.04) ng/mL B-Natriuretic Peptide (Less than 100) pg/mL 07/27/19 Range/Units 12:33 WBC (4.3-11.1) K/mcL RBC (4.19-5.50) M/mcL Hgb (12.9-16.9) g/dL Hct (37.5-50.1) % MCV (83.0-100.0) fL MCH (28.0-33.3) pg MCHC (31.6-35.5) g/dL RDW (11.5-14.5) % Plt Count (140-400) K/mcL MPV (9.4-12.4) fL Immature Gran % (0-4) % Seg Neutrophils % % Lymphocytes % % Monocytes % % Eosinophils % % Basophils % % Neutrophils # (1.6-8.9) K/mcL Lymphocytes # (0.6-4.6) K/mcL Monocytes # (0.0-1.3) K/mcL Eosinophils # (0.0-0.6) K/mcL Basophils # (0.0-0.2) K/mcL PT (9.4-12.1) Seconds INR APTT (26.0-36.0) Seconds Sodium (136-145) mEq/L Potassium (3.5-5.1) mEq/L Chloride (98-107) mEq/L Carbon Dioxide (23-29) mEq/L BUN (6-20) mg/dL Creatinine (0.70-1.30) mg/dL Est GFR ( Amer) (> 60) Est GFR (Non-Af Amer) (> 60) BUN/Creatinine Ratio (6-26) Glucose (70-105) mg/dL Calculated Osmolality (280-300) Calcium (8.6-10.3) mg/dL Troponin I (< 0.04) ng/mL B-Natriuretic Peptide 43 (Less than 100) pg/mL - Radiology Data Radiology results reviewed: Yes I reviewed the patient's radiology results. Chest X-Ray 07/27/19 13:42 IMPRESSION: No acute cardiopulmonary process. D/ / Miguel Martinez MD / Miguel Martinez MD Interpreting Provider: Miguel Martinez MD Chest CTA 07/27/19 14:35 IMPRESSION: No evidence of pulmonary embolism or acute pulmonary abnormality. D/ / 07/27/2019 14:42:38 Savana Brice MD / rosalba Interpreting Provider: Savana Brice MD - EKG Data EKG attestation: Yes I reviewed and interpreted this EKG. EKG results narrative: Sinus rhythm rate of 80 beats or minute. Normal axis. Normal intervals. Normal R-wave progression. No gross ST elevations or depressions. No acute ischemic findings. No significant changes from previous EKG dated 04/25/19. Heart Score - Score History: Slightly Suspicious EKG: Normal Age: 45-65 Risk Factors: 1-2 risk factors Troponin: Less than normal limit HEART Score Total: 2 S.B.A.R. - [place].Sommer Situation: Demographics, MOA Background: Presenting Complaint, Relevant PMH, Meds, & Allergies Assessment: Course and respsone to treatment, Exam Concerns, Patient/Family Expectation, Pertinant Lab Results Recommendation: Barrier(s) to disposition, Recommendation based on pending studies, treatments, or consults S.B.A.RDameon Report Given to: Hospitalist Moira Repor Time: 15:27
[2019-07-27 12:50] LABS: Basophils % 0.5 %; Eosinophils # 0.2 K/mcL (0.0-0.6); Hematocrit 41.5 % (37.5-50.1); Hemoglobin 13.9 g/dL (12.9-16.9); Immature Granulocytes % 0.5 % (0-4); Lymphocytes # 1.6 K/mcL (0.6-4.6); Lymphocytes % 20.4 %; Mean Corpuscular HGB Conc 33.5 g/dL (31.6-35.5); Mean Corpuscular Hemoglobin 28.9 pg (28.0-33.3); Mean Corpuscular Volume 86.3 fL (83.0-100.0); Mean Platelet Volume 11.7 fL (9.4-12.4); Monocytes # 0.6 K/mcL (0.0-1.3); Neutrophils # 5.2 K/mcL (1.6-8.9); Platelet Count 177 K/mcL (140-400); Red Blood Count 4.81 M/mcL (4.19-5.50); Red Cell Distribution Width 12.8 % (11.5-14.5); Segmented Neutrophils % 67.6 %; White Blood Count 7.6 K/mcL (4.3-11.1)
[2019-07-27 13:06] LABS: BUN/Creatinine Ratio 15 (6-26); Blood Urea Nitrogen 17 mg/dL (6-20); Calcium 9.2 mg/dL (8.6-10.3); Carbon Dioxide 27 mEq/L (23-29); Chloride 107 mEq/L (98-107); Glucose 115 mg/dL (70-105); Osmolality,Calculated 290 (280-300); Potassium 3.8 mEq/L (3.5-5.1); Sodium 139 mEq/L (136-145); eGFR For African Americans > 60 (> 60); eGFR For Non-African Americans > 60 (> 60)
[2019-07-27 13:07] LABS: Troponin I < 0.03 ng/mL (< 0.04)
[2019-07-27 13:10] LABS: INR 1.3; Prothrombin Time 14.2 Seconds (9.4-12.1)
[2019-07-27 13:12] LABS: Activated Partial Thrombo Time 32.3 Seconds (26.0-36.0)
[2019-07-27] MEDS ORDERED: *HR* Heparin 5,000 UNIT/ML VIAL IVP ONE (15:11)
[2019-07-27] MEDS ORDERED: *HR* Heparin 5,000 UNIT/ML VIAL IVP PRN ×4 (15:11→16:08)
[2019-07-27] MEDS ORDERED: Heparin 25,000 UNIT/250 ML D5W 25,000 UNIT/250 ML IV.SOLN IVC SCH (15:15)
[2019-07-27] MEDS ORDERED: *HR* LORazepam 2 MG/ML VIAL IVP ONE (16:12)
[2019-07-27 16:25] LABS: Heparin anti-factor XA UFH 0.46 IU/mL (0.30-0.70)
[2019-07-27] MEDS: Heparin 25,000 UNIT/250 ML D5W 25,000 UNIT/250 ML IV.SOLN IVC SCH (16:28)
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
[2019-07-27] MEDS ORDERED: traZODone 50 MG TABLET PO PRN (17:23)
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
[2019-07-27] MEDS ORDERED: *HR* HYDROcodone/Acet 5/325 mg TABLET PO ONE (19:49)
[2019-07-27] MEDS ORDERED: *HR* HYDROmorphone 2 MG TABLET PO ONE (20:26)
[2019-07-28 00:29] LABS: Basophils # 0.1 K/mcL (0.0-0.2); Basophils % 0.6 %; Eosinophils # 0.4 K/mcL (0.0-0.6); Eosinophils % 4.2 %; Hematocrit 41.3 % (37.5-50.1); Hemoglobin 13.7 g/dL (12.9-16.9); Immature Granulocytes % 0.8 % (0-4); Lymphocytes # 2.8 K/mcL (0.6-4.6); Lymphocytes % 28.1 %; Mean Corpuscular HGB Conc 33.2 g/dL (31.6-35.5); Mean Corpuscular Hemoglobin 28.3 pg (28.0-33.3); Mean Corpuscular Volume 85.3 fL (83.0-100.0); Mean Platelet Volume 11.9 fL (9.4-12.4); Monocytes # 0.8 K/mcL (0.0-1.3); Monocytes % 8.1 %; Neutrophils # 5.8 K/mcL (1.6-8.9); Platelet Count 164 K/mcL (140-400); Red Blood Count 4.84 M/mcL (4.19-5.50); Segmented Neutrophils % 58.2 %
[2019-07-28 00:36] LABS: INR 1.2; Prothrombin Time 13.4 Seconds (9.4-12.1)
[2019-07-28 00:49] LABS: Alanine Aminotransferase 17 Units/L (7-52); Albumin 3.9 g/dL (3.5-5.7); Albumin/Globulin Ratio 1.7 (1.1-2.2); Alkaline Phosphatase 77 Units/L (34-104); Aspartate Amino Transferase 14 Units/L (13-39); BUN/Creatinine Ratio 18 (6-26); Bilirubin,Total 0.5 mg/dL (0.3-1.0); Blood Urea Nitrogen 15 mg/dL (6-20); Calcium 8.8 mg/dL (8.6-10.3); Carbon Dioxide 23 mEq/L (23-29); Chloride 105 mEq/L (98-107); Globulin 2.3 g/dL (2.4-3.5); Glucose 94 mg/dL (70-105); Osmolality,Calculated 287 (280-300); Potassium 3.5 mEq/L (3.5-5.1); Sodium 138 mEq/L (136-145); Total Protein 6.2 g/dL (6.4-8.9); eGFR For African Americans > 60 (> 60); eGFR For Non-African Americans > 60 (> 60)
[2019-07-28] MEDS: Heparin 25,000 UNIT/250 ML D5W 25,000 UNIT/250 ML IV.SOLN IVC SCH (03:00)
[2019-07-28] MEDS: Morphine Sulfate Oral CONC 10 MG/0.5 ML ORAL.SYG PO PRN ×3 (04:17→17:26)
[2019-07-28] MEDS: amLODIPine 5 MG TABLET PO SCH (09:25)
--- NOTE | 2019-07-28 10:30 | Electrocardiograph Report ---
[employer] 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
--- NOTE | 2019-07-28 10:51 | Internal Med Progress Note ---
<Dahlia Hussein - Last Filed: 07/28/19 10:44> Hospitalist Progress Note - Encounter Date of Encounter: 07/28/19 Time of Encounter: 10:45 - Subjective Interval History: Patient presented to ED yesterday for DVT in the right tibioperoneal trunk pain in the context of multiple blood clots in same leg and pulmonary embolism within last year. IVC filter was removed approximately a week and a half ago. Patient takes Eliquis regularly. Patient also reports chest tightness. Patient reports that last night leg pain was 9-10 out of 10. He received morphine for pain control after reporting that Dilaudid was not effective. Pat ient would like to be put on something for pain and anxiety. PTT last night was 137.3; heparin is currently held and then will be titrated down because of this. - Exam Vitals: Temp Pulse Resp BP Pulse Ox 98.2 F 64 15 120/81 95 07/28/19 10:19 07/28/19 10:19 07/28/19 10:19 07/28/19 10:19 07/28/19 10:19 Exam: GENERAL: awake, conversant, in no acute distress. Intermittently anxious and slightly agitated EYES: clear sclerae, anicteric, pupils equal and reactive to light bilaterally HENT: atraumatic, normocephalic. Moist mucosa. NECK: normal carotid pulses. Supple CV: regular rate and rhythm, normal S1 and S2. No murmurs, clicks, or gallops. RESPIRATORY: Clear to auscultation bilaterally. No wheezes, rhonchi, or rales ABDOMEN: Soft, nontender, mildly distended but improved since yesterday. Normal bowel sounds. EXTREMITIES: Nonpitting edema from yesterday has improved. Mild edema still present in right LE. Right calf is painful to palpation. Peripheral pulses are 2+/4. Capillary refill <2s SKIN: Cool, dry. No erythema or areas of warmth. - Assessment and Plan (1) DVT (deep venous thrombosis) Current Visit: Yes Status: Acute Assessment and Plan: Records appear to be mostly at [place]. -Request for records has been placed Heparin is currently held due to aPTT of 137.3. Heparin will be titrated on restart. Hematology has been consulted. -Will await their recommendations regarding anticoagulation. (2) Chest pain Current Visit: Yes Status: Acute (3) Hypertension Current Visit: No Status: Acute - Time Spent with Patient Total time spent is greater than 50% in coordination of care (as documented) at patient's floor/unit and/or counseling patient: Internal Medicine: Result - Labs CBC & Chem 7: 07/28/19 00:05 07/28/19 00:05 Labs: Short CBC 07/27/19 07/28/19 Range/Units 12:33 00:05 WBC 7.6 10.0 (4.3-11.1) K/mcL Hgb 13.9 13.7 (12.9-16.9) g/dL Hct 41.5 41.3 (37.5-50.1) % Plt Count 177 164 (140-400) K/mcL Neutrophils # 5.2 5.8 (1.6-8.9) K/mcL BMP 07/27/19 07/28/19 12:33 00:05 Sodium 139 138 Potassium 3.8 3.5 Chloride 107 105 Carbon Dioxide 27 23 BUN 17 15 Creatinine 1.14 0.85 Glucose 115 H 94 Calcium 9.2 8.8 Cardiac Enzymes 07/27/19 Range/Units 12:33 Troponin I < 0.03 (< 0.04) ng/mL Liver Function 07/28/19 Range/Units 00:05 Total Bilirubin 0.5 (0.3-1.0) mg/dL AST 14 (13-39) Units/L ALT 17 (7-52) Units/L Alkaline Phosphatase 77 (34-104) Units/L Albumin 3.9 (3.5-5.7) g/dL - ABG Interpretation ABG results: PT/INR, D-dimer PT 13.4 Seconds (9.4-12.1) H 07/28/19 00:05 - Impressions Impressions Chest X-Ray 07/27/19 13:42 IMPRESSION: No acute cardiopulmonary process. D/ / Miguel Martinez MD / Miguel Martinez MD Interpreting Provider: Miguel Martinez MD Chest CTA 07/27/19 14:35 IMPRESSION: No evidence of pulmonary embolism or acute pulmonary abnormality. D/ /27/2019 14:42:38 Savana Brice MD / rosalba Interpreting Provider: Savana Briec MD Consult Discharge Plan - Plan Referrals: Eli Kraft, GARAGE WORKER [Primary Care Provider] - <DonnstephanastasiaThai Maguimarta - Last Filed: 07/28/19 18:01> Hospitalist Progress Note - Encounter Date of Encounter: 07/28/19 - Exam Vitals: Temp Pulse Resp BP Pulse Ox 97.6 F 63 17 133/85 96 07/28/19 15:21 07/28/19 15:21 07/28/19 15:21 07/28/19 15:21 07/28/19 15:21 - Time Spent with Patient Total time spent is greater than 50% in coordination of care (as documented) at patient's floor/unit and/or counseling patient: Internal Medicine: Result - Labs CBC & Chem 7: 07/28/19 00:05 07/28/19 00:05 Labs: Short CBC 07/28/19 Range/Units 00:05 WBC 10.0 (4.3-11.1) K/mcL Hgb 13.7 (12.9-16.9) g/dL Hct 41.3 (37.5-50.1) % Plt Count 164 (140-400) K/mcL Neutrophils # 5.8 (1.6-8.9) K/mcL BMP 07/28/19 00:05 Sodium 138 Potassium 3.5 Chloride 105 Carbon Dioxide 23 BUN 15 Creatinine 0.85 Glucose 94 Calcium 8.8 Liver Function 07/28/19 Range/Units 00:05 Total Bilirubin 0.5 (0.3-1.0) mg/dL AST 14 (13-39) Units/L ALT 17 (7-52) Units/L Alkaline Phosphatase 77 (34-104) Units/L Albumin 3.9 (3.5-5.7) g/dL - ABG Interpretation ABG results: PT/INR, D-dimer PT 13.4 Seconds (9.4-12.1) H 07/28/19 00:05 - Impressions Impressions Chest CTA 07/27/19 14:35 IMPRESSION: No evidence of pulmonary embolism or acute pulmonary abnormality. D/ / 07/27/2019 14:42:38 Savana Brice MD / rosalba Interpreting Provider: Savana Brice MD - Attending Attestation I saw evaluated and examined this patient and reviewed objective data including labs and my medical decision-making was reviewed with the Resident Physician. I agree with the documented findings, disposition and treatment plan as described except to any changes set forth below. We independently had [id number] contact with the patient. No acute events. Right lower extremity pain. VS: reviewed, hemodynamically stable, no hypotension or tachycardia. Labs: reviewed, No acute distress, right LE edema patient states is about same, slightly better. Transition heparin drip to Lovenox today. Await heme/onc recs for anticoagulation on discharge. Likely discharge after recs. <Dahlia Hussein - Last Filed: 07/28/19 10:44> (1) DVT (deep venous thrombosis) Qualifiers: DVT location: lower extremity Affected thrombotic vein of extremity: tibial Chronicity: acute Laterality: right Qualified Code(s): I82.441 - Acute embolism and thrombosis of right tibial vein (2) Chest pain Qualifiers: Chest pain type: other chest pain Qualified Code(s): R07.89 - Other chest pain; R07.8 - Other chest pain (3) Hypertension Qualifiers: Hypertension type: essential hypertension Qualified Code(s): I10 - Essential (primary) hypertension
[2019-07-28] MEDS: *HR* Enoxaparin 120 MG/0.8 ML SYRINGE SQ SCH ×2 (13:13→20:40)
--- NOTE | 2019-07-28 16:42 | Oncology Inp Consult Note ---
<Kiana Swann - Last Filed: 07/28/19 16:50> Date of Encounter: 07/28/19 Time of Encounter: 12:00 Assessment and Plan (1) DVT (deep venous thrombosis) Status: Acute Assessment and plan: Recurrent DVT and history of PE (diagnosed in April,) Patient was on Xarelto at time of PE this April. Transitioned to Eliquis at discharge in April and notes compliance with medication. Admitted 07/27/19 with chest pain and RLE pain/edema. Bilateral lower extremity venous doppler - Acute occlusive DVT right Tibioperoneal trunk vein. Left no DVT. CTA chest negative for PE. Plan: Patient currently on Heparin drip. Recommend edoxaban for anticoagulation (if adequate insurance coverage) due to concerns of difficulty with keeping INR within range with warfarin due to medication and diet interactions. Discussed with Dr. Hussein and requested pharmacy look into insurance coverage on edoxaban. Qualifiers: DVT location: lower extremity Affected thrombotic vein of extremity: tibial Chronicity: acute Laterality: right Qualified Code(s): I82.441 - Acute embolism and thrombosis of right tibial vein - Data of Consult Patient: known to practice within the last 3 years Consult date: 07/27/19 Requesting Physician: Estevan Rosales MD Primary Care Provider: Eli Kraft CNP - Consult Narrative Reason for consult: recurrent DVT History of present illness: This is a 48-year-old male with a past medical history of DVTs, pulmonary emboli (diagnosed April,) currently on Eliquis who presented to the emergency department with chest pain and leg pain. Patient states the chest pain began on 07/26/19 but then worsened overnight. He is also had pain in his right leg as well as swelling into his calf with pain. Denies any trauma. He did have his IVC filter removed 2 weeks ago in [place], [place]. He notes compliance with his Eliquis. Hematology history: [employer]: Dr. Bernardo Seen for inpatient consult April, for PEs. He was taking Xarelto at time and was changed to Eliquis BID at discharge in April,. Hx bilateral DVT, PE, with new onset pleuritic chest pain and SOB CTA showing multiple PE, rt and left lung, possibly new. He reported compliance with Xarelto in April. Discharged in April on Eliquis BID. s/p IVC filter placement with eduarda DVT which was removed two weeks ago. Past Med Surg Social Fam HX - Past Medical History Medical history: asthma, DVT, hypertension, pulmonary embolus Additional medical history: Orthopedic surgery Psychiatric history: no psych history - Past Surgical History Surgical History: no surgical history Additional surgical history: R knee replacement, hernia with mesh - Social History Smoking Status: Former smoker Smokeless Tobacco Status: No Alcohol use: none Drug use: none - Family History Mother Living Status: Hx Family Cardiac Disorders: Yes (AFIB,CABG X4) Hx Family Cancer: Yes Hx Family Endocrine Disorder: Yes (CKD, KIDNEY TRANSPLANT) Father Living Status: Hx Family Endocrine Disorder: Yes (DM) Hx Family HEENT Disorders: Yes (SLEEP APNEA) Medications and Allergies Amlodipine Besylate 10 mg PO DAILY 04/03/19 [History] Apixaban [Eliquis] 5 mg PO BID 07/27/19 [History] traZODone [TraZODone] 50 mg PO HS PRN 07/27/19 [History] Allergy/AdvReac Type Severity Reaction Status Date / Time acetaminophen [From [place]] AdvReac Hallucinati Verified 07/27/19 20:20 ng hydrocodone [From [place]] AdvReac Hallucinati Verified 07/27/19 20:20 ng Constitutional: Absent: fever(s) Cardiovascular: Present: chest pain Respiratory: Present: dyspnea on exertion Gastrointestinal: Absent: hematemesis, hematochezia, melena Additional comments: RLE edema and pain Oncology - Exam - Constitutional General appearance: cooperative, no acute distress - Head Head exam: Present: normal inspection, normocephalic - Respiratory Respiratory exam: Present: decreased breath sounds - Cardiovascular Cardiovascular exam: Present: RRR - Extremities Exam Additional comments: RLE edema - Neurological Exam Neurological exam: Present: alert, oriented X3 - Psychiatric Psychiatric exam: Present: normal affect, normal mood Oncology Inpatient Results Labs: Laboratory Results - last 24 hr 07/28/19 07/28/19 07/28/19 00:05 00:05 00:05 WBC 10.0 RBC 4.84 Hgb 13.7 Hct 41.3 MCV 85.3 MCH 28.3 MCHC 33.2 RDW 13.0 Plt Count 164 MPV 11.9 Immature Gran % 0.8 Seg Neutrophils % 58.2 Lymphocytes % 28.1 Monocytes % 8.1 Eosinophils % 4.2 Basophils % 0.6 Neutrophils # 5.8 Lymphocytes # 2.8 Monocytes # 0.8 Eosinophils # 0.4 Basophils # 0.1 PT 13.4 H INR 1.2 APTT > 360.0 H* D Sodium Potassium Chloride Carbon Dioxide BUN Creatinine Est GFR ( Amer) Est GFR (Non-Af Amer) BUN/Creatinine Ratio Glucose Calculated Osmolality Calcium Total Bilirubin AST ALT Alkaline Phosphatase Serum Total Protein Albumin Globulin Albumin/Globulin Ratio 07/28/19 07/28/19 00:05 08:01 WBC RBC Hgb Hct MCV MCH MCHC RDW Plt Count MPV Immature Gran % Seg Neutrophils % Lymphocytes % Monocytes % Eosinophils % Basophils % Neutrophils # Lymphocytes # Monocytes # Eosinophils # Basophils # PT INR APTT 137.3 H* D Sodium 138 Potassium 3.5 Chloride 105 Carbon Dioxide 23 BUN 15 Creatinine 0.85 Est GFR ( Amer) > 60 Est GFR (Non-Af Amer) > 60 BUN/Creatinine Ratio 18 Glucose 94 Calculated Osmolality 287 Calcium 8.8 Total Bilirubin 0.5 AST 14 ALT 17 Alkaline Phosphatase 77 Serum Total Protein 6.2 L Albumin 3.9 Globulin 2.3 L Albumin/Globulin Ratio 1.7 Chest X-Ray 07/27/19 13:42 IMPRESSION: No acute cardiopulmonary process. D/ / Miguel Martinez MD / Miguel Martinez MD Interpreting Provider: Miguel Martinez MD Chest CTA 07/27/19 14:35 IMPRESSION: No evidence of pulmonary embolism or acute pulmonary abnormality. D/ / 07/27/2019 14:42:38 Savana Brice MD / lgray Interpreting Provider: Savana Brice MD Consult Discharge Plan - Plan Referrals: Eli Kraft AVIATION OPERATIONS SPECIALIST [Primary Care Provider] - Inpatient Charges Provider: Dr. Mony Grimes <Salima Grimes - Last Filed: 07/29/19 10:43> Date of Encounter: 07/29/19 - Data of Consult Requesting Physician: Estevan Rosales MD Primary Care Provider: Eli Kraft CNP - Consult Narrative History of present illness: Patient known to us from prior hospitalization/follow up, with hx thrombosis, he reported retrieval of IVC filter with interruption of anticoagulation, few day sago otherwise compliance with eliquis. He was previously on xarelto. CTA is negative (prior PE hx), doppler-tibial/peroneal DVT. Can try endoxaban instead of eliquis if there is coverage, otherwise transition to coumadin after lovenox for outpatient oral anticoagulation. Patient was seen bedside this AM> He has kower ext pain, no SOB. DEnies gross bleeding while on anticoagulation. I examined this patient and my medical decision-making was reviewed with the Advanced Practice Nurse, Kiana Swann. I agree with the documented findings, disposition and treatment plan as described except to the extent set forth below. Inpatient Charges Provider: Dr. Mony Grimes Consult - Inpatient: [id number]
[2019-07-28] MEDS: *HR* OxyCODONE/APAP 5/325 TABLET PO PRN (22:14)
[2019-07-29] MEDS: Morphine Sulfate Oral CONC 10 MG/0.5 ML ORAL.SYG PO PRN ×2 (00:35→08:29)
[2019-07-29] MEDS: Ipratropium/Albuterol Neb 3 ML IH PRN ×2 (01:23→13:56)
[2019-07-29] MEDS: Ondansetron 4 MG/2 ML VIAL IVP PRN ×3 (02:34→15:08)
[2019-07-29 04:33] LABS: Basophils # 0.1 K/mcL (0.0-0.2); Basophils % 0.7 %; Eosinophils # 0.4 K/mcL (0.0-0.6); Eosinophils % 4.6 %; Hematocrit 43.2 % (37.5-50.1); Hemoglobin 14.4 g/dL (12.9-16.9); Immature Granulocytes % 0.6 % (0-4); Lymphocytes # 1.8 K/mcL (0.6-4.6); Lymphocytes % 21.9 %; Mean Corpuscular HGB Conc 33.3 g/dL (31.6-35.5); Mean Corpuscular Hemoglobin 28.2 pg (28.0-33.3); Mean Corpuscular Volume 84.7 fL (83.0-100.0); Mean Platelet Volume 11.8 fL (9.4-12.4); Monocytes # 0.8 K/mcL (0.0-1.3); Neutrophils # 5.3 K/mcL (1.6-8.9); Platelet Count 185 K/mcL (140-400); Red Cell Distribution Width 12.8 % (11.5-14.5); Segmented Neutrophils % 63.2 %; White Blood Count 8.4 K/mcL (4.3-11.1)
[2019-07-29 04:40] LABS: INR 1.2; Prothrombin Time 13.1 Seconds (9.4-12.1)
[2019-07-29 04:52] LABS: BUN/Creatinine Ratio 13 (6-26); Blood Urea Nitrogen 12 mg/dL (6-20); Calcium 9.3 mg/dL (8.6-10.3); Carbon Dioxide 27 mEq/L (23-29); Chloride 102 mEq/L (98-107); Glucose 116 mg/dL (70-105); Osmolality,Calculated 287 (280-300); Potassium 3.4 mEq/L (3.5-5.1); Sodium 138 mEq/L (136-145); eGFR For African Americans > 60 (> 60); eGFR For Non-African Americans > 60 (> 60)
[2019-07-29] MEDS: *HR* OxyCODONE/APAP 5/325 TABLET PO PRN ×2 (05:25→15:08)
--- NOTE | 2019-07-29 07:38 | Discharge Summary ---
- NOTES TO OUTPATIENT PROVIDER Notes to Outpatient Provider: Patient presented for DVT in right leg while on Eliquis. He has had similar in same leg, as well as pulmonary embolism within past year. Referral has been sent to [facility]. Anticoagulation has also been adjusted. Date of Encounter: 07/29/19 Time of Encounter: 09:20 - Discharge Diagnosis (1) DVT (deep venous thrombosis) Priority: Primary Status: Acute Qualifiers: Qualified Code(s): I82.441 - Acute embolism and thrombosis of right tibial vein (2) Chest pain Priority: Secondary Status: Acute Qualifiers: Qualified Code(s): R07.89 - Other chest pain; R07.8 - Other chest pain (3) Hypertension Priority: Secondary Status: Acute Qualifiers: Qualified Code(s): I10 - Essential (primary) hypertension Hospital course: Mr. Skinner is a 48 year old male who presented with right leg pain and chest tightness 2 days ago. This was in the context of hypertension and repeated DVTs in the same leg, as well as self-reported pulmonary embolism. Patient had IVC filter removed approximately 10 days before presentation. Venous Doppler showed right tibioperoneal trunk vein thrombosis. DVT occurred despite taking Eliquis regularly. Chest x-ray showed no acute cardiopulmonary process. CTA chest showed no evidence for pulmonary embolism. Vital signs have been stable throug hout visit. Patient was put on heparin drip. On day 2 of hospital stay APTT was 137.3. Heparin was held then titrated down. Hematology followed patient during stay and recommended ___. Patient will be discharged on Lovenox bridge for 5 days and will follow with a ulises of vascular surgery as outpatient. - Time Spent with Patient Total time spent providing and/or coordinating discharge services: - Discharge Medications Prescriptions: New Enoxaparin [Lovenox] 120 mg SQ Q12H 5 Days syringe OxyCODONE/APAP 5/325 [Percocet 5/325 MG] 1 each PO Q4HR PRN 6 Days #30 tablet PRN Reason: Pain Continued Amlodipine Besylate 10 mg PO DAILY traZODone [TraZODone] 50 mg PO HS PRN PRN Reason: Sleep Discontinued Apixaban [Eliquis] 5 mg PO BID Home Medications: Amlodipine Besylate 10 mg PO DAILY 04/03/19 [History] traZODone [TraZODone] 50 mg PO HS PRN 07/27/19 [History] Enoxaparin [Lovenox] 120 mg SQ Q12H 5 Days syringe 07/29/19 [Rx] OxyCODONE/APAP 5/325 [Percocet 5/325 MG] 1 each PO Q4HR PRN 6 Days #30 tablet 07/29/19 [Rx] Allergies/Adverse Reactions: Allergy/AdvReac Type Severity Reaction Status Date / Time acetaminophen [From [place]] AdvReac Hallucinati Verified 07/27/19 20:20 ng hydrocodone [From [place]] AdvReac Hallucinati Verified 07/27/19 20:20 ng Date of admission: 07/27/19 15:38 Primary care physician: Eli Kraft CNP Consults: 07/27/19 15:12 Consult to Oncology Hematology [CONS] Stat Consulting Provider: Sravanthi Avalos Reason for Consult: recurring DVT Time Notified: 15:14 Call Completed: Yes Discharging clinician: Dahlia Hussein Anticipated date of discharge: 07/29/19 - Constitutional Vitals: Temp Pulse Resp BP Pulse Ox 97.5 F L 65 18 132/80 96 07/29/19 07:20 07/29/19 07:20 07/29/19 07:20 07/29/19 07:20 07/29/19 07:20 Exam: GENERAL: awake, conversant. In no acute distress EYES: anicteric, clear sclerae. Pupils equal and reactive to light bilaterally. HENT: atraumatic, normocephalic. Moist mucosa NECK: normal carotid pulses. Supple CV: regular rate and rhythm. Normal S1 and S2. No murmurs, clicks, or gallops. RESPIRATORY/CHEST: clear to auscultation bilaterally. No wheezes, rhonchi, or rales. Chest nontender to palpation ABDOMEN: soft, mild bilateral upper quadrant tenderness, nondistended. Normal bowel sounds EXTREMITIES: right leg has mild nonpitting edema. Right calf tender to palpation. Peripheral pulses 2+/4. Capillary refill <2 sec SKIN: no rashes or lesions. Warm and dry. - Patient Status Disposition: Transfer Other Condition: Good Functional capacity at discharge: uses cane/walker Overall status at discharge: patient is progressing back to baseline - Discharge Instructions Instructions: Deep Venous Thrombosis (DC) Follow Up With: Eleno Song MD [Partnered Physician] - 08/18/19 2:00 pm Eli Kraft CNP [Primary Care Provider] - (Web request entered. Office will call with date and time of appointment.) Forms: Inpatient Work/School Release - Diet and Activity Activity: ambulate only with your walker, resume usual activities as tolerated Diet: advance to your usual diet
[2019-07-29] MEDS: amLODIPine 5 MG TABLET PO SCH (08:28)
[2019-07-29] MEDS: *HR* Enoxaparin 120 MG/0.8 ML SYRINGE SQ SCH ×2 (10:36→17:08)
[2019-07-29] MEDS ORDERED: Morphine Sulfate Oral CONC 10 MG/0.5 ML ORAL.SYG PO PRN (15:08)
[2019-07-29] MEDS ORDERED: Simethicone 80 MG TAB.CHEW PO PRN (15:54)
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
[2019-07-29 16:58] VITALS: BP 128/85
== END 2019-07-29 17:15 | disposition home or self-care (01) ==
LOC: EMEROOARM 12:05 → 3ANU 12:05 → SUATTDRO 15:38 → 3ANU 16:25
PROVIDERS: ADMIT Internal Medicine; ATTEND Student in an Organized Health Care Education/Training Program

== ENCOUNTER 2019-10-28 16:54 | Observation (INO) ==
[2019-10-28] MEDS ORDERED: *HR* FentaNYL (PF) 100 MCG/2 ML VIAL IVP ONE (19:00)
[2019-10-28 19:57] LABS: Basophils # 0.1 K/mcL (0.0-0.2); Basophils % 0.5 %; Eosinophils # 0.1 K/mcL (0.0-0.6); Hematocrit 41.3 % (37.5-50.1); Hemoglobin 14.2 g/dL (12.9-16.9); Immature Granulocytes % 2.5 % (0-4); Lymphocytes # 2.3 K/mcL (0.6-4.6); Lymphocytes % 17.7 %; Mean Corpuscular HGB Conc 34.4 g/dL (31.6-35.5); Mean Corpuscular Hemoglobin 29.8 pg (28.0-33.3); Mean Corpuscular Volume 86.8 fL (83.0-100.0); Mean Platelet Volume 11.7 fL (9.4-12.4); Monocytes # 0.9 K/mcL (0.0-1.3); Monocytes % 6.7 %; Neutrophils # 9.3 K/mcL (1.6-8.9); Platelet Count 165 K/mcL (140-400); Red Blood Count 4.76 M/mcL (4.19-5.50); Red Cell Distribution Width 12.9 % (11.5-14.5); Segmented Neutrophils % 71.6 %
[2019-10-28 20:11] LABS: Prothrombin Time 11.3 Seconds (9.4-12.1)
[2019-10-28 20:14] LABS: Activated Partial Thrombo Time 26.8 Seconds (26.0-36.0)
[2019-10-28 20:20] LABS: Alanine Aminotransferase 25 Units/L (7-52); Albumin 3.8 g/dL (3.5-5.7); Albumin/Globulin Ratio 1.5 (1.1-2.2); Alkaline Phosphatase 66 Units/L (34-104); Amylase 56 Units/L (29-103); Aspartate Amino Transferase 18 Units/L (13-39); BUN/Creatinine Ratio 28 (6-26); Bilirubin,Direct 0.1 mg/dL (0.0-0.2); Bilirubin,Indirect 0.3 mg/dL (0.0-1.0); Bilirubin,Total 0.4 mg/dL (0.3-1.0); Blood Urea Nitrogen 25 mg/dL (6-20); Calcium 8.8 mg/dL (8.6-10.3); Carbon Dioxide 22 mEq/L (23-29); Chloride 104 mEq/L (98-107); Globulin 2.6 g/dL (2.4-3.5); Glucose 147 mg/dL (70-105); Lipase 39 Units/L (11-82); Osmolality,Calculated 291 (280-300); Potassium 3.7 mEq/L (3.5-5.1); Sodium 137 mEq/L (136-145); Total Protein 6.4 g/dL (6.4-8.9); Troponin I < 0.03 ng/mL (< 0.04); eGFR For African Americans > 60 (> 60); eGFR For Non-African Americans > 60 (> 60)
[2019-10-28] MEDS ORDERED: Isovue-370 500 ML BOTTLE IVP ONE (20:22)
[2019-10-28 20:37] LABS: Bilirubin,Urine Negative (Negative); Blood,Urine Negative (Negative); Clarity,Urine Clear (Clear); Color,Urine Yellow (Yellow); Glucose,Urine (UA) Normal (Normal); Ketones,Urine Negative (Negative); Leukocyte Esterase,Urine Negative (Negative); Nitrite,Urine Negative (Negative); Protein,Urine Negative (Neg-Trace); Specific Gravity,Urine 1.028 (1.010-1.025); Urobilinogen,Urine Normal (Normal)
[2019-10-28] MEDS ORDERED: *HR* OxyCODONE/APAP 5/325 TABLET PO ONE (22:01)
[2019-10-28] MEDS ORDERED: *HR* Heparin 5,000 UNIT/ML VIAL IVP PRN ×2 (22:39)
[2019-10-28] MEDS ORDERED: *HR* Heparin 5,000 UNIT/ML VIAL IVP ONE (22:39)
[2019-10-28] MEDS ORDERED: Heparin 25,000 UNIT/250 ML D5W 25,000 UNIT/250 ML IV.SOLN IVC SCH (22:45)
[2019-10-28] MEDS ORDERED: 0.9 % Sodium Chloride 1,000 ML IVC ONE (23:40)
[2019-10-29] MEDS ORDERED: Naloxone 0.4 MG/ML INJ IVP PRN (10:28)
[2019-10-29] MEDS ORDERED: *HR* OxyCODONE Immed Rel 5 MG TABLET PO PRN (10:28)
[2019-10-29] MEDS ORDERED: traZODone 50 MG TABLET PO PRN (10:29)
[2019-10-29] MEDS: amLODIPine 5 MG TABLET PO SCH (11:23)
[2019-10-29] MEDS: *HR* OxyCODONE Immed Rel 5 MG TABLET PO PRN ×2 (11:23→20:18)
[2019-10-29] MEDS: *HR* Enoxaparin 150 MG/ML SYRINGE SQ SCH ×2 (12:40→20:18)
[2019-10-29] MEDS: Acetaminophen 325 MG TABLET PO PRN ×2 (15:53→23:00)
[2019-10-29] MEDS ORDERED: Fluticasone Propionate Nasal 50 MCG/SPRAY BOTTLE NS PRN (17:33)
[2019-10-29] MEDS ORDERED: Ondansetron ODT 4 MG TAB.RAPDIS PO PRN (17:33)
[2019-10-29] MEDS ORDERED: *HR* Warfarin 5 MG TABLET PO ONE (18:00)
[2019-10-29] MEDS ORDERED: Warfarin perPT PO PRN (18:00)
[2019-10-30] MEDS: *HR* OxyCODONE Immed Rel 5 MG TABLET PO PRN (04:49)
[2019-10-30] MEDS: *HR* Enoxaparin 150 MG/ML SYRINGE SQ SCH (08:30)
[2019-10-30] MEDS: amLODIPine 5 MG TABLET PO SCH (08:33)
[2019-10-30] MEDS ORDERED: hydroCHLOROthiazide 25 MG TABLET PO SCH (09:00)
[2019-10-30] MEDS: Nystatin SUSP 5 ML UD.LIQ PO SCH ×2 (12:21→18:03)
[2019-10-30 13:25] VITALS: BP 154/93
[2019-10-30 13:55] LABS: Basophils # 0.1 K/mcL (0.0-0.2); Basophils % 0.6 %; Eosinophils # 0.1 K/mcL (0.0-0.6); Eosinophils % 1.4 %; Hematocrit 43.7 % (37.5-50.1); Immature Granulocytes % 1.9 % (0-4); Lymphocytes # 1.9 K/mcL (0.6-4.6); Lymphocytes % 18.2 %; Mean Corpuscular HGB Conc 34.3 g/dL (31.6-35.5); Mean Corpuscular Hemoglobin 29.5 pg (28.0-33.3); Mean Platelet Volume 12.8 fL (9.4-12.4); Monocytes # 0.7 K/mcL (0.0-1.3); Monocytes % 6.9 %; Neutrophils # 7.3 K/mcL (1.6-8.9); Platelet Count 141 K/mcL (140-400); Red Blood Count 5.08 M/mcL (4.19-5.50); White Blood Count 10.3 K/mcL (4.3-11.1)
[2019-10-30 14:29] LABS: BUN/Creatinine Ratio 15 (6-26); Blood Urea Nitrogen 14 mg/dL (6-20); Calcium 9.4 mg/dL (8.6-10.3); Carbon Dioxide 24 mEq/L (23-29); Chloride 98 mEq/L (98-107); Glucose 90 mg/dL (70-105); Osmolality,Calculated 278 (280-300); Potassium 4.6 mEq/L (3.5-5.1); Sodium 134 mEq/L (136-145); eGFR For African Americans > 60 (> 60); eGFR For Non-African Americans > 60 (> 60)
[2019-10-30 16:06] LABS: Prothrombin Time 11.7 Seconds (9.4-12.1)
[2019-10-30] MEDS ORDERED: *HR* Warfarin 5 MG TABLET PO ONE (18:00)
== END 2019-10-30 18:11 | disposition home or self-care (01) ==
LOC: 3BNU 16:54 → EMEROOARM 16:54 → SUATTDRO 10-29 00:09 → 3NENU 10-29 00:18
PROVIDERS: ADMIT Internal Medicine; ATTEND Internal Medicine

== ENCOUNTER 2020-08-30 14:28 | Inpatient (IN) ==
[2020-08-30] MEDS ORDERED: Isovue-370 500 ML BOTTLE IVP ONE (14:43)
[2020-08-30] MEDS ORDERED: Azithromycin 500 MG in 0.9 % Sodium Chloride 250 ML IVPB ONE (14:43)
[2020-08-30] MEDS ORDERED: Ipratropium/Albuterol Neb 3 ML IH ONE (14:43)
[2020-08-30] MEDS ORDERED: Dexamethasone 4 MG/ML VIAL IVP ONE (14:44)
[2020-08-30] MEDS ORDERED: Acetaminophen 325 MG TABLET PO ONE (14:50)
[2020-08-30] MEDS ORDERED: Ondansetron 4 MG/2 ML VIAL IVP ONE (14:50)
[2020-08-30 15:15] LABS: Basophils % 0.2 %; Eosinophils % 0.1 %; Hematocrit 45.7 % (37.5-50.1); Hemoglobin 15.2 g/dL (12.9-16.9); Immature Granulocytes % 0.5 % (0-4); Lymphocytes # 0.8 K/mcL (0.6-4.6); Lymphocytes % 6.4 %; Mean Corpuscular HGB Conc 33.3 g/dL (31.6-35.5); Mean Corpuscular Volume 87.2 fL (83.0-100.0); Mean Platelet Volume 12.4 fL (9.4-12.4); Monocytes # 0.9 K/mcL (0.0-1.3); Monocytes % 6.5 %; Neutrophils # 11.2 K/mcL (1.6-8.9); Platelet Count 159 K/mcL (140-400); Red Blood Count 5.24 M/mcL (4.19-5.50); Red Cell Distribution Width 12.6 % (11.5-14.5); Segmented Neutrophils % 86.3 %
[2020-08-30 15:20] LABS: VBG HCO3 23 mEq/L (21-27); VBG PCO2 34 mmHg (41-51); VBG PH 7.45 pH Units (7.32-7.42); VBG PO2 58 mmHg (25-50)
[2020-08-30 15:21] LABS: INR 2.5; Prothrombin Time 28.1 Seconds (9.4-12.1)
[2020-08-30 15:24] LABS: Activated Partial Thrombo Time 31.8 Seconds (26.0-36.0)
[2020-08-30 15:47] LABS: Alanine Aminotransferase 20 Units/L (7-52); Albumin 3.6 g/dL (3.5-5.7); Albumin/Globulin Ratio 1.1 (1.1-2.2); Alkaline Phosphatase 64 Units/L (34-104); Aspartate Amino Transferase 20 Units/L (13-39); BUN/Creatinine Ratio 14 (6-26); Bilirubin,Direct 0.2 mg/dL (0.0-0.2); Bilirubin,Indirect 0.3 mg/dL (0.0-1.0); Bilirubin,Total 0.5 mg/dL (0.3-1.0); Blood Urea Nitrogen 13 mg/dL (6-20); C-Reactive Protein 143 mg/L (Less than 10); Calcium 8.2 mg/dL (8.6-10.3); Carbon Dioxide 22 mEq/L (23-29); Chloride 102 mEq/L (98-107); Globulin 3.2 g/dL (2.4-3.5); Glucose 155 mg/dL (70-105); Lactate Dehydrogenase 221 Units/L (140-271); Magnesium 1.9 mg/dL (1.6-2.6); Osmolality,Calculated 281 (280-300); Phosphorous 2.1 mg/dL (2.7-4.5); Potassium 3.4 mEq/L (3.5-5.1); Sodium 134 mEq/L (136-145); Total Protein 6.8 g/dL (6.4-8.9); Troponin I 0.03 ng/mL (< 0.04); eGFR For African Americans > 60 (> 60); eGFR For Non-African Americans > 60 (> 60)
[2020-08-30 15:55] LABS: Ferritin 313 ng/mL (20-250)
[2020-08-30 17:59] LABS: Bilirubin,Urine Negative (Negative); Blood,Urine Small (Negative); Clarity,Urine Clear (Clear); Color,Urine Yellow (Yellow); Glucose,Urine (UA) Normal (Normal); Ketones,Urine Negative (Negative); Leukocyte Esterase,Urine Negative (Negative); Mucus,Urine Few per lpf (None-Few); Nitrite,Urine Negative (Negative); PH,Urine 6.5 pH Units (5.0-8.0); Protein,Urine 70 mg/dL (Neg-Trace); RBC,Urine 0-3 per hpf (0-3); Specific Gravity,Urine > 1.030 (1.010-1.025); WBC,Urine 0-3 per hpf (0-3)
[2020-08-30] MEDS ORDERED: 0.9 % Sodium Chloride 1,000 ML IVC ONE (18:29)
[2020-08-30] MEDS ORDERED: Naloxone 0.4 MG/ML INJ IVP PRN (20:53)
[2020-08-30] MEDS ORDERED: *HR* Warfarin 7.5 MG TABLET PO ONE (22:45)
[2020-08-30] MEDS ORDERED: Benzonatate 100 MG CAPSULE PO PRN (23:00)
[2020-08-30] MEDS ORDERED: Menthol 9.1 MG LOZENGE PO PRN (23:03)
[2020-08-30] MEDS ORDERED: 0.9 % Sodium Chloride 250 ML IVC SCH (23:15)
[2020-08-31] MEDS: Ipratropium 1 PUFF INHALER IH SCH ×8 (03:16→23:49)
[2020-08-31 04:01] LABS: Hematocrit 43.1 % (37.5-50.1); Hemoglobin 13.9 g/dL (12.9-16.9); Mean Corpuscular HGB Conc 32.3 g/dL (31.6-35.5); Mean Corpuscular Hemoglobin 27.9 pg (28.0-33.3); Mean Corpuscular Volume 86.5 fL (83.0-100.0); Mean Platelet Volume 12.2 fL (9.4-12.4); Platelet Count 167 K/mcL (140-400); Red Blood Count 4.98 M/mcL (4.19-5.50); Red Cell Distribution Width 12.6 % (11.5-14.5)
[2020-08-31 04:07] LABS: INR 2.2; Prothrombin Time 24.6 Seconds (9.4-12.1)
[2020-08-31 04:21] LABS: BUN/Creatinine Ratio 18 (6-26); Blood Urea Nitrogen 14 mg/dL (6-20); Calcium 8.2 mg/dL (8.6-10.3); Carbon Dioxide 21 mEq/L (23-29); Chloride 103 mEq/L (98-107); Glucose 203 mg/dL (70-105); Osmolality,Calculated 282 (280-300); Phosphorous 2.6 mg/dL (2.7-4.5); Potassium 4.3 mEq/L (3.5-5.1); Sodium 133 mEq/L (136-145); eGFR For African Americans > 60 (> 60); eGFR For Non-African Americans > 60 (> 60)
[2020-08-31] MEDS: Dexamethasone 4 MG/ML VIAL IVP SCH (08:47)
[2020-08-31] MEDS ORDERED: Acetaminophen 325 MG TABLET PO PRN (08:52)
[2020-08-31] MEDS ORDERED: Menthol 9.1 MG LOZENGE PO PRN (08:53)
[2020-08-31] MEDS ORDERED: Fluticasone Propionate Nasal 50 MCG/SPRAY BOTTLE NS PRN (17:49)
[2020-08-31] MEDS ORDERED: traZODone 50 MG TABLET PO PRN (17:49)
[2020-08-31] MEDS ORDERED: Ondansetron ODT 4 MG TAB.RAPDIS PO PRN (17:49)
[2020-08-31] MEDS ORDERED: Warfarin perPT PO PRN (18:00)
[2020-08-31] MEDS ORDERED: *HR* Warfarin 7.5 MG TABLET PO ONE (18:00)
[2020-09-01] MEDS: Ipratropium 1 PUFF INHALER IH SCH ×6 (03:55→23:38)
[2020-09-01 06:41] LABS: INR 2.5; Prothrombin Time 28.7 Seconds (9.4-12.1)
[2020-09-01 06:45] LABS: Basophils % 0.2 %; Hematocrit 44.4 % (37.5-50.1); Hemoglobin 14.6 g/dL (12.9-16.9); Immature Granulocytes % 0.7 % (0-4); Lymphocytes # 0.9 K/mcL (0.6-4.6); Lymphocytes % 6.9 %; Mean Corpuscular HGB Conc 32.9 g/dL (31.6-35.5); Mean Corpuscular Hemoglobin 28.9 pg (28.0-33.3); Mean Corpuscular Volume 87.7 fL (83.0-100.0); Mean Platelet Volume 12.5 fL (9.4-12.4); Monocytes # 0.8 K/mcL (0.0-1.3); Monocytes % 5.8 %; Neutrophils # 11.3 K/mcL (1.6-8.9); Platelet Count 198 K/mcL (140-400); Red Blood Count 5.06 M/mcL (4.19-5.50); Red Cell Distribution Width 12.5 % (11.5-14.5); Segmented Neutrophils % 86.4 %; White Blood Count 13.1 K/mcL (4.3-11.1)
[2020-09-01 06:56] LABS: BUN/Creatinine Ratio 24 (6-26); Blood Urea Nitrogen 21 mg/dL (6-20); Calcium 8.8 mg/dL (8.6-10.3); Carbon Dioxide 26 mEq/L (23-29); Chloride 103 mEq/L (98-107); Glucose 225 mg/dL (70-105); Osmolality,Calculated 290 (280-300); Potassium 4.5 mEq/L (3.5-5.1); Sodium 135 mEq/L (136-145); eGFR For African Americans > 60 (> 60); eGFR For Non-African Americans > 60 (> 60)
[2020-09-01] MEDS: Dexamethasone 4 MG/ML VIAL IVP SCH (08:22)
[2020-09-01] MEDS: amLODIPine 5 MG TABLET PO SCH (08:22)
[2020-09-01 08:25] LABS: Estimated Average Glucose 134 mg/dl
[2020-09-01] MEDS ORDERED: hydroCHLOROthiazide 25 MG TABLET PO SCH (09:00)
[2020-09-01] MEDS ORDERED: *HR* Dextrose 50 % in Water (Vial) 50 ML VIAL IVP PRN (11:22)
[2020-09-01] MEDS ORDERED: Dextrose Gel 15 GM/37.5 ML TUBE PO PRN ×2 (11:22)
[2020-09-01] MEDS ORDERED: D5% in Water 1,000 ML IVC PRN (11:22)
[2020-09-01] MEDS: Insulin LISPRO 300 UNITS/3 ML VIAL SQ SCH ×3 (11:49→20:41)
[2020-09-01] MEDS ORDERED: Menthol 9.1 MG LOZENGE PO PRN (16:45)
[2020-09-01] MEDS ORDERED: Benzonatate 100 MG CAPSULE PO PRN (16:45)
[2020-09-01] MEDS ORDERED: *HR* Warfarin 5 MG TABLET PO ONE (18:00)
[2020-09-02] MEDS: Ipratropium 1 PUFF INHALER IH SCH ×6 (04:16→23:47)
[2020-09-02 06:40] LABS: Basophils % 0.2 %; Eosinophils % 0.1 %; Hematocrit 44.2 % (37.5-50.1); Hemoglobin 14.7 g/dL (12.9-16.9); Immature Granulocytes % 1.5 % (0-4); Lymphocytes # 1.2 K/mcL (0.6-4.6); Lymphocytes % 9.3 %; Mean Corpuscular HGB Conc 33.3 g/dL (31.6-35.5); Mean Corpuscular Hemoglobin 28.5 pg (28.0-33.3); Mean Corpuscular Volume 85.8 fL (83.0-100.0); Mean Platelet Volume 12.5 fL (9.4-12.4); Monocytes # 0.9 K/mcL (0.0-1.3); Neutrophils # 10.5 K/mcL (1.6-8.9); Nucleated Red Blood Cells 0.2 /100 WBC (0); Platelet Count 199 K/mcL (140-400); Red Blood Count 5.15 M/mcL (4.19-5.50); Red Cell Distribution Width 12.4 % (11.5-14.5); Segmented Neutrophils % 81.9 %; White Blood Count 12.8 K/mcL (4.3-11.1)
[2020-09-02 06:44] LABS: INR 3.3; Prothrombin Time 36.8 Seconds (9.4-12.1)
[2020-09-02 06:59] LABS: BUN/Creatinine Ratio 29 (6-26); Blood Urea Nitrogen 24 mg/dL (6-20); Carbon Dioxide 25 mEq/L (23-29); Chloride 100 mEq/L (98-107); Glucose 219 mg/dL (70-105); Osmolality,Calculated 287 (280-300); Potassium 4.4 mEq/L (3.5-5.1); Sodium 133 mEq/L (136-145); eGFR For African Americans > 60 (> 60); eGFR For Non-African Americans > 60 (> 60)
[2020-09-02] MEDS: FLUoxetine 20 MG CAPSULE PO SCH (07:47)
[2020-09-02] MEDS: Dexamethasone 4 MG/ML VIAL IVP SCH (07:47)
[2020-09-02] MEDS: amLODIPine 5 MG TABLET PO SCH (07:47)
[2020-09-02] MEDS: Insulin LISPRO 300 UNITS/3 ML VIAL SQ SCH ×4 (08:00→21:12)
[2020-09-02] MEDS ORDERED: Furosemide 20 MG/2 ML VIAL IVP ONE (11:00)
[2020-09-02] MEDS ORDERED: 0.9 % Sodium Chloride 250 ML IVC SCH (11:00)
[2020-09-02] MEDS: Furosemide 40 MG/4 ML VIAL IVP SCH (12:58)
[2020-09-02] MEDS: cefTRIAXone 1,000 MG in Water for inj. (sterile) 10 ML IVP SCH (12:58)
[2020-09-02] MEDS: Azithromycin 500 MG in 0.9 % Sodium Chloride 250 ML IVPB SCH (12:58)
[2020-09-02] MEDS: Sennosides/Docusate Sodium TABLET PO SCH (21:11)
[2020-09-02] MEDS: Insulin DETEMIR 100 UNIT/ML X5UNITS SQ SCH (21:11)
[2020-09-03] MEDS: Ipratropium 1 PUFF INHALER IH SCH ×6 (03:42→23:51)
[2020-09-03 07:03] LABS: Basophils # 0.1 K/mcL (0.0-0.2); Basophils % 0.5 %; Eosinophils % 0.1 %; Hematocrit 44.6 % (37.5-50.1); Hemoglobin 14.5 g/dL (12.9-16.9); Immature Granulocytes % 4.3 % (0-4); Lymphocytes # 1.7 K/mcL (0.6-4.6); Lymphocytes % 11.1 %; Mean Corpuscular HGB Conc 32.5 g/dL (31.6-35.5); Mean Corpuscular Hemoglobin 28.5 pg (28.0-33.3); Mean Corpuscular Volume 87.6 fL (83.0-100.0); Mean Platelet Volume 11.9 fL (9.4-12.4); Monocytes # 1.2 K/mcL (0.0-1.3); Monocytes % 7.6 %; Neutrophils # 11.6 K/mcL (1.6-8.9); Platelet Count 256 K/mcL (140-400); Red Blood Count 5.09 M/mcL (4.19-5.50); Red Cell Distribution Width 12.2 % (11.5-14.5); Segmented Neutrophils % 76.4 %; White Blood Count 15.2 K/mcL (4.3-11.1)
[2020-09-03 07:08] LABS: INR 2.7; Prothrombin Time 30.8 Seconds (9.4-12.1)
[2020-09-03 07:26] LABS: BUN/Creatinine Ratio 31 (6-26); Blood Urea Nitrogen 27 mg/dL (6-20); Calcium 8.6 mg/dL (8.6-10.3); Carbon Dioxide 28 mEq/L (23-29); Chloride 100 mEq/L (98-107); Glucose 252 mg/dL (70-105); Magnesium 2.6 mg/dL (1.6-2.6); Osmolality,Calculated 292 (280-300); Potassium 4.4 mEq/L (3.5-5.1); Sodium 134 mEq/L (136-145); eGFR For African Americans > 60 (> 60); eGFR For Non-African Americans > 60 (> 60)
[2020-09-03] MEDS: cefTRIAXone 1,000 MG in Water for inj. (sterile) 10 ML IVP SCH (08:51)
[2020-09-03] MEDS: Dexamethasone 4 MG/ML VIAL IVP SCH (08:53)
[2020-09-03] MEDS: Sennosides/Docusate Sodium TABLET PO SCH ×2 (08:53→20:44)
[2020-09-03] MEDS: Furosemide 40 MG/4 ML VIAL IVP SCH (08:53)
[2020-09-03] MEDS: amLODIPine 5 MG TABLET PO SCH (08:53)
[2020-09-03] MEDS: Insulin LISPRO 300 UNITS/3 ML VIAL SQ SCH ×4 (09:36→20:46)
[2020-09-03] MEDS: FLUoxetine 20 MG CAPSULE PO SCH (09:39)
[2020-09-03] MEDS: Azithromycin 500 MG in 0.9 % Sodium Chloride 250 ML IVPB SCH (12:45)
[2020-09-03] MEDS ORDERED: *HR* Warfarin 5 MG TABLET PO ONE (18:00)
[2020-09-03] MEDS: Insulin DETEMIR 100 UNIT/ML X5UNITS SQ SCH (20:44)
[2020-09-04] MEDS: Ipratropium 1 PUFF INHALER IH SCH ×4 (03:36→15:06)
[2020-09-04 04:26] LABS: INR 1.9; Prothrombin Time 22.1 Seconds (9.4-12.1)
[2020-09-04] MEDS: cefTRIAXone 1,000 MG in Water for inj. (sterile) 10 ML IVP SCH (08:40)
[2020-09-04] MEDS: Dexamethasone 4 MG/ML VIAL IVP SCH (08:41)
[2020-09-04] MEDS: FLUoxetine 20 MG CAPSULE PO SCH (08:41)
[2020-09-04] MEDS: Furosemide 40 MG/4 ML VIAL IVP SCH (08:41)
[2020-09-04] MEDS: amLODIPine 5 MG TABLET PO SCH (08:41)
[2020-09-04] MEDS: Sennosides/Docusate Sodium TABLET PO SCH (08:42)
[2020-09-04] MEDS: Insulin LISPRO 300 UNITS/3 ML VIAL SQ SCH ×2 (11:41→17:20)
[2020-09-04 11:54] VITALS: BP 147/78
[2020-09-04] MEDS ORDERED: Azithromycin 250 MG TABLET PO SCH (13:00)
[2020-09-04] MEDS ORDERED: *HR* Warfarin 7.5 MG TABLET PO ONE (18:00)
[2020-09-04] MEDS ORDERED: Insulin DETEMIR 100 UNIT/ML X5UNITS SQ SCH (21:00)
[2020-09-04] MEDS ORDERED: Insulin LISPRO 300 UNITS/3 ML VIAL SQ SCH (21:00)
== END 2020-09-04 18:02 | disposition home or self-care (01) | DRG 137 ==
LOC: EMEROOARM 14:28 → 2NENU 14:28 → SUATTDRO 18:46 → 2NENU 20:18
PROVIDERS: ADMIT Internal Medicine; ATTEND Internal Medicine

== ENCOUNTER 2021-02-26 09:44 | Inpatient (IN) ==
[2021-02-26] MEDS ORDERED: Isovue-370 500 ML BOTTLE IVP ONE (10:44)
[2021-02-26 11:28] LABS: Basophils # 0.1 K/mcL (0.0-0.2); Basophils % 0.6 %; Eosinophils # 0.3 K/mcL (0.0-0.6); Eosinophils % 3.7 %; Hematocrit 46.9 % (37.5-50.1); Hemoglobin 15.2 g/dL (12.9-16.9); Immature Granulocytes % 0.9 % (0-4); Lymphocytes # 2.1 K/mcL (0.6-4.6); Lymphocytes % 25.6 %; Mean Corpuscular HGB Conc 32.4 g/dL (31.6-35.5); Mean Corpuscular Hemoglobin 28.3 pg (28.0-33.3); Mean Corpuscular Volume 87.3 fL (83.0-100.0); Mean Platelet Volume 12.1 fL (9.4-12.4); Monocytes # 0.8 K/mcL (0.0-1.3); Monocytes % 9.2 %; Neutrophils # 4.9 K/mcL (1.6-8.9); Platelet Count 173 K/mcL (140-400); Red Blood Count 5.37 M/mcL (4.19-5.50); White Blood Count 8.2 K/mcL (4.3-11.1)
[2021-02-26 11:34] LABS: INR 1.5; Prothrombin Time 16.8 Seconds (9.4-12.1)
[2021-02-26 11:36] LABS: Activated Partial Thrombo Time 40.3 Seconds (26.0-36.0)
[2021-02-26 11:50] LABS: BUN/Creatinine Ratio 14 (6-26); Blood Urea Nitrogen 14 mg/dL (6-20); Calcium 9.4 mg/dL (8.6-10.3); Carbon Dioxide 28 mEq/L (23-29); Chloride 104 mEq/L (98-107); Glucose 82 mg/dL (70-105); Osmolality,Calculated 286 (280-300); Potassium 4.1 mEq/L (3.5-5.1); Sodium 138 mEq/L (136-145); eGFR For African Americans > 60 (> 60); eGFR For Non-African Americans > 60 (> 60)
[2021-02-26 11:51] LABS: Troponin I < 0.03 ng/mL (< 0.04)
[2021-02-26] MEDS ORDERED: *HR* Heparin 5,000 UNIT/ML VIAL IVP ONE (12:28)
[2021-02-26] MEDS ORDERED: *HR* Heparin 5,000 UNIT/ML VIAL IVP PRN (12:28)
[2021-02-26] MEDS ORDERED: Heparin 25,000UNIT/250ML 1/2NS 25,000 UNIT/250 ML IV.SOLN IVC SCH (12:30)
[2021-02-26] MEDS ORDERED: Morphine Sulfate 2 MG/ML SYRINGE IVP STA (12:53)
[2021-02-26] MEDS ORDERED: Naloxone 0.4 MG/ML INJ IVP PRN (14:04)
[2021-02-26] MEDS ORDERED: Ipratropium/Albuterol Neb 3 ML IH PRN (14:13)
[2021-02-26] MEDS ORDERED: Acetaminophen 325 MG TABLET PO PRN (16:38)
[2021-02-26] MEDS: Morphine Sulfate 2 MG/ML SYRINGE IVP PRN (21:15)
[2021-02-27 00:27] LABS: Basophils # 0.1 K/mcL (0.0-0.2); Basophils % 0.7 %; Eosinophils # 0.5 K/mcL (0.0-0.6); Hematocrit 42.8 % (37.5-50.1); Hemoglobin 14.2 g/dL (12.9-16.9); Immature Granulocytes % 0.7 % (0-4); Lymphocytes # 2.9 K/mcL (0.6-4.6); Lymphocytes % 29.7 %; Mean Corpuscular HGB Conc 33.2 g/dL (31.6-35.5); Mean Corpuscular Hemoglobin 28.1 pg (28.0-33.3); Mean Corpuscular Volume 84.8 fL (83.0-100.0); Mean Platelet Volume 12.3 fL (9.4-12.4); Monocytes # 0.8 K/mcL (0.0-1.3); Monocytes % 8.5 %; Neutrophils # 5.5 K/mcL (1.6-8.9); Platelet Count 148 K/mcL (140-400); Red Blood Count 5.05 M/mcL (4.19-5.50); Red Cell Distribution Width 13.1 % (11.5-14.5); Segmented Neutrophils % 55.4 %; White Blood Count 9.9 K/mcL (4.3-11.1)
[2021-02-27 00:33] LABS: INR 1.7; Prothrombin Time 19.3 Seconds (9.4-12.1)
[2021-02-27] MEDS: Heparin 25,000UNIT/250ML 1/2NS 25,000 UNIT/250 ML IV.SOLN IVC SCH ×2 (03:18→23:06)
[2021-02-27] MEDS ORDERED: Fluticasone Propionate Nasal 50 MCG/SPRAY BOTTLE NS PRN (08:25)
[2021-02-27] MEDS: amLODIPine 5 MG TABLET PO SCH (08:47)
[2021-02-27] MEDS: Morphine Sulfate 2 MG/ML SYRINGE IVP PRN ×2 (14:12→23:02)
[2021-02-27] MEDS ORDERED: *HR* Warfarin 10 MG TABLET PO ONE (18:00)
[2021-02-27] MEDS ORDERED: *HR* Warfarin 2.5 MG TABLET PO ONE (18:00)
[2021-02-27] MEDS ORDERED: Warfarin perPT PO PRN (18:00)
[2021-02-28] MEDS: Heparin 25,000UNIT/250ML 1/2NS 25,000 UNIT/250 ML IV.SOLN IVC SCH ×2 (06:53→17:01)
[2021-02-28 07:48] LABS: Hematocrit 46.4 % (37.5-50.1); Hemoglobin 15.2 g/dL (12.9-16.9); Mean Corpuscular HGB Conc 32.8 g/dL (31.6-35.5); Mean Corpuscular Hemoglobin 28.6 pg (28.0-33.3); Mean Corpuscular Volume 87.2 fL (83.0-100.0); Mean Platelet Volume 12.3 fL (9.4-12.4); Platelet Count 162 K/mcL (140-400); Red Blood Count 5.32 M/mcL (4.19-5.50); Red Cell Distribution Width 12.9 % (11.5-14.5); White Blood Count 9.5 K/mcL (4.3-11.1)
[2021-02-28] MEDS: amLODIPine 5 MG TABLET PO SCH (07:57)
[2021-02-28 08:14] LABS: INR 1.3
[2021-02-28 08:30] LABS: BUN/Creatinine Ratio 20 (6-26); Blood Urea Nitrogen 18 mg/dL (6-20); Calcium 9.1 mg/dL (8.6-10.3); Carbon Dioxide 23 mEq/L (23-29); Chloride 106 mEq/L (98-107); Glucose 103 mg/dL (70-105); Osmolality,Calculated 284 (280-300); Potassium 4.1 mEq/L (3.5-5.1); Sodium 136 mEq/L (136-145); eGFR For African Americans > 60 (> 60); eGFR For Non-African Americans > 60 (> 60)
[2021-02-28] MEDS: Morphine Sulfate 2 MG/ML SYRINGE IVP PRN (13:19)
[2021-02-28] MEDS: *HR* Heparin 5,000 UNIT/ML VIAL IVP PRN (16:50)
[2021-02-28] MEDS ORDERED: Warfarin 10 MG, Warfarin 2.5 MG PO ONE (18:00)
[2021-02-28] MEDS ORDERED: Simethicone 80 MG TAB.CHEW PO PRN (21:39)
[2021-02-28] MEDS: *HR* OxyCODONE/APAP 5/325 TABLET PO PRN (21:51)
[2021-03-01 03:17] LABS: INR 1.6; Prothrombin Time 18.6 Seconds (9.4-12.1)
[2021-03-01] MEDS: Heparin 25,000UNIT/250ML 1/2NS 25,000 UNIT/250 ML IV.SOLN IVC SCH ×2 (07:16→15:05)
[2021-03-01] MEDS: *HR* Heparin 5,000 UNIT/ML VIAL IVP PRN (07:18)
[2021-03-01] MEDS: *HR* OxyCODONE/APAP 5/325 TABLET PO PRN ×3 (07:20→21:15)
[2021-03-01] MEDS: amLODIPine 5 MG TABLET PO SCH (07:20)
[2021-03-01] MEDS ORDERED: Morphine Sulfate 2 MG/ML SYRINGE IVP PRN (17:10)
[2021-03-01] MEDS ORDERED: *HR* OxyCODONE/APAP 10/325 TABLET PO PRN (17:10)
[2021-03-01] MEDS ORDERED: Warfarin 10 MG, Warfarin 2.5 MG PO ONE (18:00)
[2021-03-02] MEDS: *HR* OxyCODONE/APAP 5/325 TABLET PO PRN ×2 (05:34→09:50)
[2021-03-02 06:26] LABS: INR 2.4; Prothrombin Time 27.1 Seconds (9.4-12.1)
[2021-03-02] MEDS: Heparin 25,000UNIT/250ML 1/2NS 25,000 UNIT/250 ML IV.SOLN IVC SCH ×2 (07:07→07:38)
[2021-03-02 07:18] VITALS: BP 122/76
[2021-03-02] MEDS: amLODIPine 5 MG TABLET PO SCH (07:32)
== END 2021-03-02 11:07 | disposition home or self-care (01) | DRG 197 ==
LOC: 2ANU 09:44 → EMEROOARM 09:44 → SUATTDRO 13:51 → 2ANU 14:33
PROVIDERS: ADMIT Family Medicine; ATTEND Internal Medicine